=== PATIENT | male | born 1955 | race Caucasian/White ===

== ENCOUNTER 2016-06-12 04:00 | Inpatient (IN) | payer MEDICARE, BC ==
--- NOTE | ~2016-06-12 | DS ---
Discharge Summary [facility] [address] [place]. [address] NAME: ALEXIS LAMBERT : 51 STATUS : DIS IN PAT#: [id number] AGE: 60 ADM/REG DATE : 06/12/16 MR#: [id number] REPORT SERV DATE: 06/24/16 DICTATED BY: LLOYD DORANTES DATE: 06/23/16 REPORT STATUS : Draft TRANSCRIBED BY: MODConrad DATE: 06/23/16 ADMISSION DATE: 06/12/2016 DISCHARGE DATE: 06/23/2016 INDICATION FOR HOSPITALIZATION: Chest pain. DISCHARGE DIAGNOSES: 1. Non-ST elevation myocardial infarction. 2. Ischemic cardiomyopathy, ejection fraction 20-25%. 3. Coronary artery disease, remote, CABG, 5-vessels in 2007 with subsequent PCI x2. 4. End-stage renal disease, dialyzing Monday, Monday, Monday via right upper extremity AV fistula in [facility]. 5. Sleep apnea with CPAP use. 6. Hypertension. 7. Insulin-dependent diabetes mellitus, on insulin pump. 8. Gastroesophageal reflux disease with Dunbar's esophagus. 9. Gout. 10.History of lower extremity cellulitis/chronic venous stasis disease of right lower extremity. 11.Remote left below-knee amputation. 12.Peripheral artery disease with prior stent placement in lower extremity. 13.Charcot foot. 14.Iron deficiency anemia. 15.Hyperparathyroidism. 16.Right quadriceps muscle biopsy, remotely. HOSPITAL COURSE: Mr. Lambert is followed on chronic dialysis Monday, Monday, Monday at [facility] by right upper extremity AV fistula. He apparently began having alarms on LifeVest evening prior to admission with associated chest pain. He had some shortness of breath but denied any diaphoresis or nausea. He initially contacted the [facility] who instructed him to follow up with his physician. There was no evidence of ventricular tachycardia on their recordings. He then presented to the emergency department by EMS. He was found to be in bigeminy with mild elevation in troponin at 0.23. He subsequently was seen by Cardiology. The patient felt to have had a non-ST elevation ME based on troponin elevation, which yohana to 1.03. He agreed to undergoing cardiac cath, and this was performed on 06/16/2016. Dr. Skinner performed SKEIN WINDER with drug-eluting stent to saphenous vein graft of the distal circumflex. After intervention, the pain abated and he remained pain free for the remainder of his hospitalization. He was kept hospitalized primarily to determine placement. Initially, he was not felt stable for [facility] and was then evaluated for the [facility] in [facility]. Apparently, they did not take patients on LifeVest. He improved with physical therapy in his room and rehab evaluation by [facility] on 06/22/2016 felt that he was much improved, and he was stable for further improvement with rehab. He will be discharged to [facility] rehab for additional strengthening to improve his debilitation. DISCHARGE MEDICATIONS: Allopurinol 300 mg daily; aspirin 325 mg with supper; Lipitor 20 mg Discharge Summary [address] [place]. [address] NAME: ALEXIS LAMBERT : 51 STATUS : DIS IN PAT#: [id number] AGE: 60 ADM/REG DATE : 06/12/16 MR#: [id number] REPORT SERV DATE: 06/24/16 DICTATED BY: LLOYD DORANTES DATE: 06/23/16 REPORT STATUS : Draft TRANSCRIBED BY: ETHEL DATE: 06/23/16 with supper; calcium acetate 667 mg three p.o. with meals and two p.o. with snacks; Plavix 75 mg daily; Colace 200 mg with supper; vitamin D three 50,000 units weekly; Duragesic patch 25 mcg/hour, apply q.72 h; Lasix 40 mg with supper; Neurontin 300 mg three times daily; isosorbide extended release 30 mg with supper; lisinopril 2.5 mg daily; Nephrocaps 1 daily; Mycostatin topical powder to affected areas three times daily; [place]-3 fatty acid 1200 mg capsule two with supper; Protonix 40 mg with breakfast and supper; cinacalcet is being held; Proventil 1-2 puffs q.4h p.r.n.; oxycodone 5/325, 1 q.6h p.r.n.; and insulin sliding scale level 1 until insulin pump is replaced; blood sugar 140-175, two units; 176-200, four units; 201-225, six units; 226-275, eight units; 276-325, 10 units; 326-375, 12 units. DIET: 2000-calorie ADA renal diet with 1500 mL fluid restrictions daily. ACTIVITY: Will be progressed by [employer]. CG/MODL Lloyd Dorantes M.D. / [id number] CC: Ama Lanza NP
--- NOTE | ~2016-06-12 | OP ---
Record Of Operation [facility] [address] [place]. [address] NAME: ALEXIS LAMBERT : 51 STATUS : ADM IN PAT#: [id number] AGE: 60 ADM/REG DATE : 06/12/16 MR#: [id number] REPORT SERV DATE: 06/16/16 DICTATED BY: ALIRIO QUARLES JR. DATE: 06/16/16 REPORT STATUS : Draft TRANSCRIBED BY: MODL DATE: 06/16/16 DATE OF PROCEDURE: 06/15/2016 REFERRING PHYSICIAN: Dr. Corby Barnett. PROCEDURES: This is a cardiac catheterization, saphenous vein graft injection, left internal mammary artery injection, ventriculogram, left heart catheterization, coronary angiogram followed by a percutaneous coronary interventional report with stent implantation. INDICATION: Non-ST elevation myocardial infarction, unstable angina, arrhythmias. ACCESS: Right femoral artery EQUIPMENT: 6-Chilean diagnostic sheath, 6-Chilean Jocelyn left and right catheters 4.0, angled pigtail catheter 4.0, 6-Chilean sheath. IV CONSCIOUS SEDATION: 1 mg IV Versed and 50 mcg of intravenous fentanyl. LOCAL ANESTHESIA: 1% Xylocaine subcutaneous to the right femoral region. COMPLICATIONS: None. ESTIMATED BLOOD LOSS: Approximately 5 mL. DISPOSITION: Cardiac short-stay. FLUORO TIME: 7.5 minute with 1115 mGy and 150 mL of contrast for both the interventional and the diagnostic study. PROCEDURE IN DETAIL: After informed consent was obtained, the patient was taken to the cardiac catheterization lab where he was given IV conscious sedation and local anesthesia. Then a 6-Chilean sheath was placed in the right femoral artery according to protocol, secured and flushed using modified Seldinger technique. Following placement of the 6-Chilean sheath, a Jocelyn left catheter 4.0 was advanced to the level of the left main via the aorta under fluoroscopy over wire. Cineangiography was performed in the BURUNDIAN caudal, REDDING caudal and AP caudal views. This catheter was then exchanged for a Jocelyn right catheter, which was advanced over wire under fluoroscopy in the BURUNDIAN view for which cineangiography was performed in the BURUNDIAN view and AP cranial views. Next, this catheter was then advanced cautiously to the saphenous vein graft to the distal RCA and found to be occluded. The catheter was then advanced to the remaining three saphenous vein grafts in the BURUNDIAN view. Saphenous vein graft injections were performed in the BURUNDIAN and AP cranial or REDDING caudal views. The catheter was then advanced cautiously over wire to the left internal mammary artery via the left subclavian, and cineangiography of the JACKSON was performed and ensuing LAD in the AP and REDDING cranial views. Next, the catheter was exchanged for an angled pigtail catheter, which was carefully prolapsed across the aortic valve into the left ventricle. Hemodynamic tracings were obtained in the left ventricle as well as the aorta as well as across the aortic valve [facility] Of [place] [address] [place] [address] NAME: ALEXIS LAMBERT : 51 STATUS : ADM IN PAT#: [id number] AGE: 60 ADM/REG DATE : 06/12/16 MR#: [id number] REPORT SERV DATE: 06/16/16 DICTATED BY: ALIRIO QUARLES JR. DATE: 06/16/16 REPORT STATUS : Draft TRANSCRIBED BY: MODL DATE: 06/16/16 for which aortic stenosis was not identified. The case then proceeded to intervention. HEMODYNAMICS: Left ventricular end-diastolic pressure 39 mmHg, left ventricular peak systolic pressure 103 mmHg, aortic minimum diastolic pressure of 46 mmHg, aortic peak systolic pressure of 90 mmHg, mean aortic pressure 62 mmHg. There is no gradient upon withdrawal of the catheter from left ventricle to the aorta. ANGIOGRAPHY: Left main coronary artery, normal vessel bifurcating into the left anterior descending coronary artery and a circumflex coronary artery. The left anterior descending coronary artery is moderately diseased after the first diagonal coronary artery. The left anterior descending becomes a 100% occluded and is seen filling via the left internal mammary artery. The proximal diagonal corner artery appears to be significantly to severely diseased. There is a smaller diagonal seen superior to the origin of this diagonal vessel and appears much smaller. Circumflex coronary artery, moderately diseased vessel which becomes severely diseased after the AV circumflex branch then becomes 100% stenosis. First obtuse marginal branch is not identified. There may be faint filling of the distal obtuse marginal branch noted, filling from distal homo and hetero-collaterals from the distal circumflex and left anterior descending artery as well as the distal right. Right coronary artery, a moderate size codominant vessel, 100% stenosis after the AV marginal branch. Faint filling is seen distally with faint filling by bridging collaterals. Saphenous vein graft to the distal right coronary artery, 100% stenosis. Saphenous vein graft to the first obtuse marginal, 100% stenosed. Saphenous vein graft to the first diagonal patent with BRIANNA grade 3 noted distally. Saphenous vein graft to the distal circumflex patent with 75% in-stent stenosis of the body of the graft with BRIANNA 2 flow distally. Left internal mammary artery injection, left internal mammary artery is moderate- sized vessel, which supplies the mid to distal left anterior descending coronary artery. The mid distal left anterior descending coronary artery appears severely diseased and is only approximately 1 to 1.5 mm in diameter with skip lesions noted distally and BRIANNA grade 2 to 3 flow noted distally near the apex. VENTRICULOGRAM: Severe reduction of left ventricular systolic function with left ventricular dilatation with severe anterior apical hypokinesis, severe anterior hypokinesis with 1+ mitral insufficiency. IMPRESSION: 1. Multivessel [place] epicardial coronary artery disease as above with complete occlusion of the saphenous vein graft to the right coronary artery. Saphenous vein graft to presumed OM-1 with compromised saphenous vein graft to the distal circumflex. The JACKSON to the LAD appears to be a patent with diffuse disease noted in the distal left anterior descending coronary artery. 2. Severe LV systolic dysfunction with elevated left ventricular end-diastolic pressure. PLAN AND RECOMMENDATIONS: 1. PCI of the saphenous vein graft to the circumflex. Record Of Operation [address] [address] NAME: ALEXIS LAMBERT : 51 STATUS : ADM IN [facility]#: [id number] AGE: 60 ADM/REG DATE : 06/12/16 MR#: [id number] REPORT SERV DATE: 06/16/16 DICTATED BY: ALIRIO QUARLES JR. DATE: 06/16/16 REPORT STATUS : Draft TRANSCRIBED BY: ETHEL DATE: 06/16/16 2. Rigorous medical management with cardiac risk factor reduction. /ETHEL Alirio Quarles Jr., M.D. / [id number] CC: Ama Lanza NP
--- NOTE | ~2016-06-12 | CN ---
Consultation Report [facility] [address] [place]. [address] NAME: ALEXIS LAMBERT : 51 STATUS : ADM IN PAT#: [id number] AGE: 60 ADM/REG DATE : 06/12/16 MR#: [id number] REPORT SERV DATE: 06/14/16 DICTATED BY: ALIRIO QUARLES JR. DATE: 06/14/16 REPORT STATUS : Draft TRANSCRIBED BY: ETHEL DATE: 06/14/16 DATE OF CONSULTATION: REFERRING PHYSICIANS: 1. Ashok Barnett M.D. 2. Abdoulaye Dodge M.D. CHIEF COMPLAINT: Chest pain. HISTORY OF PRESENT ILLNESS: The patient is a 60-year-old white male with history of known severe ischemic heart disease with ischemic cardiomyopathy, ejection fraction less than 35%, who presented via EMS with multiple arrhythmias noted on LifeVest telemetry. Troponin was elevated at 2. He had developed "tingling" in both arms, then severe chest pressure in both lower angles of his chest, which lasted approximately an hour and a half prior to his arrival. He was pain-free on arrival. He recently had a cardiac catheterization performed on February 24, 2016, for which he had two overlapping Synergy drug-eluting stents placed 4.0 x 38 and 4.0 x 28. He is known to have a vein graft to the fourth marginal that fills the OM3 retrogradely. He has a saphenous vein graft to the diagonal and a saphenous vein graft to an OM1, which is known to be occluded, JOSE CRUZ to the LAD, and a known LV gram from February depicting an ejection fraction of 20-25% with severe inferior hypokinesis, as well as apical hypokinesis to akinesis. Currently, he is asymptomatic. REVIEW OF SYSTEMS: A 10-point review of systems, otherwise, unremarkable. ALLERGIES: TO CILOSTAZOL AND PRAVASTATIN. MEDICATIONS: Have included albuterol, aspirin, atorvastatin, calcium acetate, Sensipar, clopidogrel, Colace, vitamin D, fentanyl patch, furosemide, gabapentin, Imdur 30, omega-3 fatty acid, oxycodone, pantoprazole, and Dialyvite. PAST MEDICAL HISTORY: Notable for history of ischemic cardiomyopathy, coronary artery disease, history of acute on chronic systolic and diastolic heart failure, morbid obesity, obstructive sleep apnea, peripheral artery disease, past history of a neuropathy, cataracts, sensorineural hearing loss, peripheral artery disease, Dunbar esophagus, esophageal cancer, diabetes mellitus, past history of depression, and chronic anemia. PAST SURGICAL HISTORY: Notable for history of five-vessel CAD, bilateral cataracts, PCI, right upper radiocephalic AV fistula, history of CAD, history of right foot two toes amputated, and history of left BKA. SOCIAL HISTORY: Notable for absence of current tobacco or ethanol use. FAMILY HISTORY: Notable for heart disease. Consultation Report [address] [place]. [address] NAME: ALEXIS LAMBERT : 51 STATUS : ADM IN PAT#: [id number] AGE: 60 ADM/REG DATE : 06/12/16 MR#: [id number] REPORT SERV DATE: 06/14/16 DICTATED BY: ALIRIO QUARLES JR. DATE: 06/14/16 REPORT STATUS : Draft TRANSCRIBED BY: ETHEL DATE: 06/14/16 PHYSICAL EXAMINATION: VITAL SIGNS: Blood pressure 130/70, pulse 72 and regular, respirations 14, patient is afebrile. HEENT: Unremarkable. NECK: Supple without jugular venous distention. CARDIOVASCULAR SYSTEM: Regular rate and rhythm. S4, questionable S3. LUNGS: Clear. ABDOMEN: Benign without hepatomegaly. EXTREMITIES: 1+ with no pedal edema on the right and the left, amputation is noted. NEUROLOGIC: The patient is grossly unchanged. LABORATORY DATA AND IMAGING: EKG on arrival was sinus rhythm with multiple PACs, PVCs, ventricular bigeminy, delayed R-wave progression, nonspecific ST changes, left axis deviation, prior inferior myocardial infarction, age undetermined. Sodium 131, potassium 5.5, chloride 95, CO2 24, BUN 55, creatinine 6.8, glucose 312. H and H 12 and 36, white count of 8, and platelet count of 146,000. BNP of 1695, troponin of 0.23, calcium 8.3, PT of 150, PT/INR of 1.2. IMPRESSION: 1. A 60-year-old, morbidly obese, white male with multiple comorbidities and known hypertension and coronary artery disease with ischemic cardiomyopathy with recent LifeVest approximately three months ago. 2. Diabetes mellitus, uncontrolled. 3. End-stage renal disease, on hemodialysis with known arteriovenous fistula. 4. Dyslipidemia. 5. Non-ST elevation myocardial infarction on arrival. PLANS AND RECOMMENDATIONS: 1. Cardiac catheterization for relook at the graft and recent PCI. The patient is aware of risk of 1% chance of , 1 in 500 chance of stroke, chance of bleeding or infection anytime we enter the skin or damage to the heart, lungs, blood vessels, or kidneys. 2. Cardiac risk factor reduction. 3. We will review medications and begin beta-viki, maximize current medical regimen. 4. Further recommendations to follow. ANY/ETHEL Alirio Quarles Jr., M.D. / [id number] Consultation Report [address] [place]. [address] NAME: ALEXIS LAMBERT : 51 STATUS : ADM IN [facility]#: [id number] AGE: 60 ADM/REG DATE : 06/12/16 MR#: [id number] REPORT SERV DATE: 06/14/16 DICTATED BY: ALIRIO QUARLES JR. DATE: 06/14/16 REPORT STATUS : Draft TRANSCRIBED BY: ETHEL DATE: 06/14/16 CC: Ama Lanza NP Stuart G Ginther, M.D. Theodore Richards, M.D. Michael C Allan, M.D. [facility]
--- NOTE | ~2016-06-12 | HP ---
History And Physical [place] [address] [place]. [address] NAME: ALEXIS LAMBERT : 51 STATUS : ADM IN [facility]#: [id number] AGE: 60 ADM/REG DATE : 06/12/16 MR#: [id number] REPORT SERV DATE: 06/12/16 DICTATED BY: DATE: REPORT STATUS : Draft TRANSCRIBED BY: MODL DATE: 06/12/16 DATE OF ADMISSION: 06/12/2016 CHIEF COMPLAINT: Chest pain. HISTORY OF PRESENT ILLNESS: Mr. Lambert is a 60-year-old white male with a history of significant coronary artery disease, DC, and ischemic cardiomyopathy with EF down to 20% to 25%. He was last seen in the hospital in February, at that time, he was sent home with a LifeVest. Apparently last night, it started alarming. He also had chest pain. No nausea or diaphoresis. With the chest pain, he did have some shortness of breath. His chest pain was midsternal without radiation. Given this, initially they called the LifeVest company who instructed them to follow up with their physician as his vest just showed a rhythm change. There was no ventricular tachycardia. Given that the symptoms were ongoing, he presented to the emergency department via EMS. His states that he was in his usual state of health yesterday and there were no problems at dialysis on Monday. He has had no fevers, chills, cough, or congestion. In the ER, he was found to be in bigeminy. Troponin with mild elevation at 0.23. Labs were remarkable for findings consistent with his end- stage renal disease. PAST MEDICAL HISTORY: End-stage renal disease, dialyzes on Monday, Monday, and Monday in [place]; coronary artery disease, status post bypass and PCI; diabetes; hypertension; obstructive sleep apnea, uses CPAP; hyperlipidemia; peripheral artery disease; left BKA; DC; Dunbar esophagus. He has had tendon rupture repair. SOCIAL HISTORY: He is , lives with . No tobacco, alcohol, or illicit drug use. FAMILY MEDICAL HISTORY: Negative for any end-stage renal disease. ALLERGIES: CILOSTAZOL AND PRAVASTATIN. MEDICATIONS AT HOME: Albuterol, allopurinol, aspirin, atorvastatin, calcium acetate, Sensipar, Plavix, docusate, vitamin D, Duragesic patch, furosemide, Neurontin, Imdur, omega- 3 fatty acid, oxycodone, Protonix, and Dialyvite daily. REVIEW OF SYSTEMS: A 12-point review of systems was obtained, negative with the exception of that in HPI. PHYSICAL EXAMINATION: VITAL SIGNS: Temperature 97.9, blood pressure 118/71, pulse 66, respiratory rate 16, and O2 saturation is 93%. GENERAL: This is a pleasant, cooperative, white male. He is awake, alert, and oriented x3. No acute distress. Answers questions appropriately. HEENT: Normocephalic, atraumatic. Conjunctivae clear. Sclerae anicteric. Oral mucosa is slightly dry. NECK: Thick. No lymphadenopathy. No neck vein distention. RESPIRATIONS: Even and unlabored. Breath sounds clear to auscultation. History And Physical [address] [address] NAME: ALEXIS LAMBERT : 51 STATUS : ADM IN [facility]#: [id number] AGE: 60 ADM/REG DATE : 06/12/16 MR#: [id number] REPORT SERV DATE: 06/12/16 DICTATED BY: DATE: REPORT STATUS : Draft TRANSCRIBED BY: MODL DATE: 06/12/16 HEART: Rate is regular. No murmur, rub, or gallop. ABDOMEN: Obese, soft, nontender. Bowel sounds active. No masses. No hepatosplenomegaly. No bruits. No CVA tenderness. BACK: Within normal limits. EXTREMITIES: He has a left BKA and stump is without any edema. Right lower extremity without any edema. SKIN: Warm, dry, and intact. No unusual rashes or skin lesions. NEUROLOGIC: No focal deficits. Mood and affect, pleasant and appropriate. PERTINENT LABORATORIES AND X-RAYS: Chest x-ray is negative. Sodium 131, potassium 5.5, chloride 95, CO2 of 24, BUN 55, creatinine 6.8, calcium 8.3, magnesium 1.7. Troponin 0.23. BNP of 1695. WBCs 8000, H and H are 12 and 36, and platelets 146,000. IMPRESSION: 1. Chest pain. 2. Arrhythmia with warming LifeVest. 3. Ischemic cardiomyopathy with EF of 20% to 25%. There were plans for an ICD to placed this , may move that date to Monday unless he needs a heart catheterization. 4. Coronary artery disease, multiple medications in the past, status post bypass and stenting. 5. End-stage renal disease, Monday, Monday, and Monday. 6. Hypertension. 7. Obstructive sleep apnea. 8. Hyperlipidemia. PLAN/RECOMMENDATION: He is going to be admitted. He is going to be placed on telemetry with serial cardiac enzymes. Cardiology has already been consulted and considering moving up his ICD placement to Monday, we will have dialysis tomorrow per his usual regimen, may try to pull some extra fluid. Further orders and recommendations pending clinical course. DARIA/ETHEL CJ Moreno / [id number] CC: Abdoulaye Dodge M.D.
--- NOTE | ~2016-06-12 | OP ---
Record Of Operation [facility] [address] [place]. [address] NAME: ALEXIS LAMBERT : 51 STATUS : ADM IN PAT#: [id number] AGE: 60 ADM/REG DATE : 06/12/16 MR#: [id number] REPORT SERV DATE: 06/16/16 DICTATED BY: ALIRIO QUARLES JR. DATE: 06/16/16 REPORT STATUS : Draft TRANSCRIBED BY: MODL DATE: 06/16/16 DATE OF PROCEDURE: 06/15/2016 INTERVENTIONAL REPORT EQUIPMENT: Asahi Prowater 180 cm J, [employer] synergy 4.0 x 20 mm stent, and a [employer] JR4 with side holes guiding catheter. ANGIOGRAPHY: There is a 75% stenosis of the body of the saphenous vein graft to the distal circumflex. This is an in-stent stenosis between two other larger stent placed previously with in-stent stenosis of the distal stent with BRIANNA grade 2 flow noted distally. ANTICOAGULATION: Intravenous heparin with ACT of 260. PROCEDURE: After a Jocelyn guiding catheter, successfully accessed the ostium of the saphenous vein graft and Asahi Prowater then traversed the lesion to the distal circumflex mechoopda vessel extending to 4 x 28 mm stent was then advanced across the lesion and dilated to 12 atmospheres for approximately 30 seconds, post dilated at 12 atmospheres for 20 seconds with 0% residual stenosis. The patient tolerated the procedure well. Hemostasis was achieved according to protocol after ACT fell below 150 seconds. IMPRESSIONS: Successful PTCA drug-eluting stent to the mid body of the saphenous vein graft to the distal circumflex. PLANS AND RECOMMENDATIONS: Plavix load of 600 mg and 75 mg daily with high-dose Lipitor administered according to recommendations. /ETHEL Alirio Quarles Jr., M.D. / [id number] CC: Ama Lanza NP
--- NOTE | ~2016-06-12 | CN ---
Consultation Report [facility] [address] [place]. [address] NAME: ALEXIS LAMBERT : 51 STATUS : ADM IN [facility]#: [id number] AGE: 60 ADM/REG DATE : 06/12/16 MR#: [id number] REPORT SERV DATE: 06/13/16 DICTATED BY: ASHOK BARNETT DATE: 06/12/16 REPORT STATUS : Draft TRANSCRIBED BY: MODL DATE: 06/12/16 CONSULTATION DATE OF CONSULTATION: REASON FOR THE VISIT: Chest pain. HISTORY OF PRESENT ILLNESS: Mr. Lambert is a 60-year-old man with known severe coronary artery disease, who is due for AICD implant this coming . He also has congestive heart failure and he is wearing a LifeVest. He was in his usual state of health when he began to have some chest pain, palpitations, and shortness of breath yesterday. This was associated with some left arm pain. His LifeVest to arm was going off constantly indicating an upcoming shock. He pressed the abort button and was never shocked. He feels better now. PAST MEDICAL HISTORY: 1. Coronary artery disease with history of CABG and myocardial infarction. 2. Congestive heart failure with severe reduction in left ventricular systolic function. 3. End-stage renal disease, dialyzing on Monday, Monday, and Monday. 4. Morbid obesity. 5. Sleep apnea. 6. History of peripheral arterial disease. SOCIAL HISTORY: Nonsmoker. He is . FAMILY HISTORY: Noncontributory. HOME MEDICATIONS: 1. Albuterol inhaler as directed. 2. Zyloprim 300 mg every night with dinner. 3. Aspirin 325 mg daily. 4. Lipitor 20 mg every night with dinner. 5. Calcium. 6. Sensipar 30 mg on dialysis days. 7. Plavix 75 mg daily. 8. Fentanyl patch. 9. Lasix 40 mg daily. 10.Gabapentin 300 mg t.i.d. 11.Imdur 30 mg daily. 12.Protonix 40 mg b.i.d. ALLERGIES: HE IS ALLERGIC TO SULFATHIAZOLE AND PRAVASTATIN. REVIEW OF SYSTEMS: A 10-system review is asked and is negative except for noted above in the history of present Consultation Report [place] [id number] [facility] [address] NAME: ALEXIS LAMBERT : 51 STATUS : ADM IN [facility]#: [id number] AGE: 60 ADM/REG DATE : 06/12/16 MR#: [id number] REPORT SERV DATE: 06/13/16 DICTATED BY: ASHOK BARNETT DATE: 06/12/16 REPORT STATUS : Draft TRANSCRIBED BY: ETHEL DATE: 06/12/16 illness. He was in his usual state of health up until this occurred suddenly yesterday. No recent cold or flu symptoms. He is always tired, always some baseline amount shortness of breath. PHYSICAL EXAMINATION: VITAL SIGNS: He is afebrile, heart rate is in the 80s, systolic blood pressure 113. GENERAL: Mr. Lambert is an overweight man, in no acute distress. He is alert and oriented to person and place. HEENT: Negative. He is not dehydrated. There is no obvious JVD in his neck, but that is difficult to tell due to body habitus. LUNGS: Have some rhonchi. No wheezing. HEART: Tones are a little bit irregular. There is some ectopy. No murmur. ABDOMEN: Negative. He has good bowel sounds. EXTREMITIES: Negative except for an amputation of his left lower extremity. There is some edema in the other extremities. NEUROLOGIC: He has normal speech. He moves all four extremities equally. SKIN: Does not show any rash. LABORATORY DATA: His white blood cell count is 8, hematocrit is 37, platelet count 146. INR 1.2. Sodium 131, potassium 5.5, BUN 55, creatinine 6.8, cardiac enzyme show a troponin of 0.23. His B-type natriuretic peptide is 1695. His electrocardiogram, this is from about 03:00 a.m. this morning, it shows sinus rhythm with frequent ventricular ectopy, typically in a bigeminal pattern. The QRS axis is normal it appears. He has poor R-wave progression. No obvious ischemia is seen. His LifeVest recording, this appears to show bigeminal PVCs as well as some couplets. No sustained ventricular tachycardia or ventricular fibrillation is seen. IMPRESSION: 1. Chest pain, shortness of breath, and palpitations. 2. Bigeminal PVCs. 3. Troponin 0.23. PLAN: At this point, I will observe Mr. Lambert without starting a blood thinner. The troponin could be secondary to an acute coronary syndrome or possibly heart failure exacerbation, plus or minus the frequent ventricular ectopy. I will start a beta-viki at low dose. We will watch the cardiac enzymes. If these increase to a significant level, then we would have to consider an acute coronary syndrome. I will start heparin and consult an interventionalist at that time. We will watch these throughout the day today. If this troponin does not continue to increase, we will consider it to a heart failure exacerbation and/or the ventricular bigeminy. We would then proceed with defibrillator placement as planned this week. I have discussed this with the patient and his . They agreed to proceed in this manner. Consultation Report [place] [id number] [facility] [place] [address] NAME: ALEXIS LAMBERT : 51 STATUS : ADM IN [facility]#: [id number] AGE: 60 ADM/REG DATE : 06/12/16 MR#: [id number] REPORT SERV DATE: 06/13/16 DICTATED BY: ASHOK BARNETT DATE: 06/12/16 REPORT STATUS : Draft TRANSCRIBED BY: ETHEL DATE: 06/12/16 Thank you for the consultation. MAINE/ETHEL Ashok Barnett M.D. / [id number] CC: Abdoulaye Dodge M.D.
[~2016-06-12 04:00] MED LIST: ACETASOL HC OT; AMLODIPINE PO; AMPHETAMINE SALT PO; ASA5GR PO; ASAB PO; ASABAYER PO; AUG500 PO; AVELOX400 PO; BETAPACE80 PO; CAT1 PO; CELEXA10 PO; COREG6 PO; D 5000 PO; DEMA100 PO; DIALYVITE PO; DIALYVITE800 MG PO; DSS PO; DURA25 TOP; DURA75 TOP; ENDOCET1 TA3 PO; FERROUS SULF325 M1 PO; FISH OIL1200 MG PO; FISH-EPA1000 MG PO; FOLIC PO; FORTAZ IV; HALF81 PO; HUMAPUMP SC; HUMULIN R U SC; HUMULIN R U-500; HUMULIN R1 ML SC; HUMULIN-R CONCEN3 ML SC; HUMULIN-R U-500; HYDRALAZINE100 MG PO; IMDUR30 PO; INHALER RX INH; IRON325 MG PO; K-TABS10 MEQ PO; KAON-CL-1010 MEQ PO; L40 PO; L80 PO; LIPITOR20 PO; LYRICA100 MG PO; LYRICA150 MG PO; LYRICA200 MG PO; METHOC500B PO; MIRALAXPKT PO; NITROSPRAY SL; NORV10 PO; NORV5 PO; NORVASC; NOVREGPUMP SC; OXYCON20 PO; OXYIR5 MG PO; PERCOCET1 TA4 PO; PHOSLO PO; PLAVIX PO; PREV30 PO; PRILO PO; PRIN20 PO; PRIN5 PO; PROAIR HFA INH; PROCRIT; PROCRIT INJECTION IM; PROCRIT10 IV; PROCRIT2 IV; PROCRIT2 SC; PROTONIX PO; REG5 PO; ROCALTROL0.5 MCG PO; STOOL SOFTEN100 MG PO; STOOL SOFTEN240 MG PO; SUCR PO; VITAMIN D1000 UNI1 PO; VITAMIN D400 UNI1 PO; VITD PO; Z300 PO; Z5 PO; [UNRECOGNIZED DRUG - CODE] IV; [UNRECOGNIZED DRUG - OTHER] IM
[2016-06-12 04:59] LABS: BASOPHILS 0.3 %; BASOPHILS ABSOLUTE 0.02 10/3/uL (0.0-0.16); EOSINOPHILS 2.3 %; EOSINOPHILS ABSOLUTE 0.18 10/3/uL (0.0-0.53); ER CBC TAT 0 Hrs 03 Mins; IMMATURE GRANULOCYTES 0.1 %; IMMATURE GRANULOCYTES ABSOLUTE 0.01 10/3/uL (0.0-0.11); LYMPHOCYTES 26.4 %; LYMPHOCYTES ABSOLUTE 2.11 10/3/uL (0.67-4.30); MEAN CORPUSCULAR HEMOGLOB 31.7 pg (26.0-34.0); MEAN PLATELET VOLUME 11.6 fL (9.2-13.0); MONOCYTES 3.6 %; MONOCYTES ABSOLUTE 0.29 10/3/uL (0.21-1.20); NEUTROPHILS 67.3 %; NEUTROPHILS ABSOLUTE 5.37 10/3/uL (2.02-8.40); PLATELET COUNT 146 10/3/uL (150-400); RBC DISTRIBUTION WIDTH 15.6 % (12.0-16.0)
[2016-06-12 05:05] LABS: HEMATOCRIT 36.8 % (40.0-51.0); MEAN CORPUS HGB CONC 32.6 g/dL (32.0-36.0); MEAN CORPUSCULAR VOLUME 97.1 fL (80-100); RED CELL COUNT 3.79 10/6/uL (4.7-6.1)
[2016-06-12 05:06] LABS: INTERNATIONAL NORMAL RATI 1.2 UNITS (-); MANUAL DIFF NO %; PARTIAL THROMBO TIME 30.4 SEC (22.5-37.2)
[2016-06-12 05:42] LABS: CHLORIDE, SERUM 95 MMOL/L (96-112); CO2 (CARBON DIOXIDE) 24 MMOL/L (24-34); POTASSIUM, SERUM 5.5 MMOL/L (3.5-5.3); SODIUM, SERUM 131 MMOL/L (135-148)
[2016-06-12 05:46] LABS: BUN (BLOOD UREA NITROGEN) 55 MG/DL (6-23); CALCIUM, SERUM 8.3 MG/DL (8.5-10.4); CHEST PAIN PROFILE TAT 0 Hrs 50 Mins; CREATININE 6.84 MG/DL (0.70-1.30); GFR AFRICAN AMERICAN 9 ML/MIN (>=60); GFR NON AFRICAN AMERICAN 8 ML/MIN (>=60); GLUCOSE, SERUM 312 MG/DL (60-99); TROPONIN I 0.23 NG/ML (<0.05)
[2016-06-12] MEDS ORDERED: PROVHFA INH (09:17)
[2016-06-12] MEDS ORDERED: SENSIPAR30 M1 PO (09:17)
[2016-06-12] MEDS ORDERED: PCET PO (09:18)
[2016-06-12] MEDS ORDERED: DURA25 TOP (09:18)
[2016-06-12] MEDS ORDERED: L40 PO (09:18)
[2016-06-12] MEDS ORDERED: NEUR300 PO (09:18)
[2016-06-12] MEDS ORDERED: VITD PO (09:19)
[2016-06-12] MEDS ORDERED: DIALYVITE PO (09:19)
[2016-06-12] MEDS ORDERED: PHOSLO PO ×2 (09:20)
[2016-06-12] MEDS ORDERED: ASABAYER PO (09:20)
[2016-06-12] MEDS ORDERED: LIPITOR20 PO (09:20)
[2016-06-12] MEDS ORDERED: PLAVIX PO (09:21)
[2016-06-12] MEDS ORDERED: IMDUR30 PO (09:21)
[2016-06-12] MEDS ORDERED: PROTONIX PO (09:21)
[2016-06-12] MEDS ORDERED: FISH OIL1200 MG PO (09:21)
[2016-06-12] MEDS ORDERED: Z300 PO (09:21)
[2016-06-12] MEDS ORDERED: DSS PO (09:22)
[2016-06-12 12:08] LABS: BASOPHILS 0.5 %; BASOPHILS ABSOLUTE 0.03 10/3/uL (0.0-0.16); EOSINOPHILS 2.9 %; EOSINOPHILS ABSOLUTE 0.19 10/3/uL (0.0-0.53); HEMATOCRIT 35.8 % (40.0-51.0); HEMOGLOBIN 11.6 g/dL (13.6-17.8); IMMATURE GRANULOCYTES 0.3 %; IMMATURE GRANULOCYTES ABSOLUTE 0.02 10/3/uL (0.0-0.11); LYMPHOCYTES 25.3 %; LYMPHOCYTES ABSOLUTE 1.68 10/3/uL (0.67-4.30); MEAN CORPUS HGB CONC 32.4 g/dL (32.0-36.0); MEAN CORPUSCULAR HEMOGLOB 31.7 pg (26.0-34.0); MEAN CORPUSCULAR VOLUME 97.8 fL (80-100); MONOCYTES ABSOLUTE 0.33 10/3/uL (0.21-1.20); NEUTROPHILS ABSOLUTE 4.39 10/3/uL (2.02-8.40); PLATELET COUNT 135 10/3/uL (150-400); RBC DISTRIBUTION WIDTH 15.7 % (12.0-16.0); RED CELL COUNT 3.66 10/6/uL (4.7-6.1); WHITE BLOOD CELLS 6.6 10/3/uL (4.5-10.5)
[2016-06-12 12:09] LABS: MANUAL DIFF NO %
[2016-06-12 12:13] LABS: INTERNATIONAL NORMAL RATI 1.2 UNITS (-); PARTIAL THROMBO TIME 31.4 SEC (22.5-37.2); PROTIME (NOT ORD) 15.4 SEC (12.0-14.5)
[2016-06-13 01:57] LABS: BASOPHILS 0.1 %; BASOPHILS ABSOLUTE 0.01 10/3/uL (0.0-0.16); EOSINOPHILS 3.3 %; EOSINOPHILS ABSOLUTE 0.23 10/3/uL (0.0-0.53); HEMATOCRIT 36.6 % (40.0-51.0); HEMOGLOBIN 11.9 g/dL (13.6-17.8); IMMATURE GRANULOCYTES 0.1 %; IMMATURE GRANULOCYTES ABSOLUTE 0.01 10/3/uL (0.0-0.11); LYMPHOCYTES ABSOLUTE 2.37 10/3/uL (0.67-4.30); MEAN CORPUS HGB CONC 32.5 g/dL (32.0-36.0); MEAN CORPUSCULAR HEMOGLOB 31.4 pg (26.0-34.0); MEAN CORPUSCULAR VOLUME 96.6 fL (80-100); MEAN PLATELET VOLUME 12.1 fL (9.2-13.0); MONOCYTES 4.4 %; MONOCYTES ABSOLUTE 0.31 10/3/uL (0.21-1.20); NEUTROPHILS 58.1 %; NEUTROPHILS ABSOLUTE 4.05 10/3/uL (2.02-8.40); PLATELET COUNT 138 10/3/uL (150-400); RBC DISTRIBUTION WIDTH 15.5 % (12.0-16.0); RED CELL COUNT 3.79 10/6/uL (4.7-6.1)
[2016-06-13 02:01] LABS: MANUAL DIFF NO %
[2016-06-13 02:13] LABS: ALBUMIN 3.1 G/DL (3.5-5.0); CALCIUM, SERUM 8.8 MG/DL (8.5-10.4); CHLORIDE, SERUM 93 MMOL/L (96-112); CO2 (CARBON DIOXIDE) 22 MMOL/L (24-34); SODIUM, SERUM 132 MMOL/L (135-148)
[2016-06-13 02:21] LABS: BUN (BLOOD UREA NITROGEN) 63 MG/DL (6-23); CREATININE 7.42 MG/DL (0.70-1.30); GFR AFRICAN AMERICAN 8 ML/MIN (>=60); GFR NON AFRICAN AMERICAN 7 ML/MIN (>=60); GLUCOSE, SERUM 87 MG/DL (60-99); PHOSPHORUS, SERUM 6.7 MG/DL (2.5-4.5)
[2016-06-14 06:33] LABS: BASOPHILS 0.2 %; BASOPHILS ABSOLUTE 0.02 10/3/uL (0.0-0.16); EOSINOPHILS 2.9 %; EOSINOPHILS ABSOLUTE 0.24 10/3/uL (0.0-0.53); IMMATURE GRANULOCYTES 0.2 %; IMMATURE GRANULOCYTES ABSOLUTE 0.02 10/3/uL (0.0-0.11); LYMPHOCYTES 28.6 %; LYMPHOCYTES ABSOLUTE 2.35 10/3/uL (0.67-4.30); MANUAL DIFF NO %; MEAN CORPUS HGB CONC 32.4 g/dL (32.0-36.0); MEAN CORPUSCULAR HEMOGLOB 31.7 pg (26.0-34.0); MEAN CORPUSCULAR VOLUME 97.6 fL (80-100); MEAN PLATELET VOLUME 11.9 fL (9.2-13.0); MONOCYTES 6.3 %; MONOCYTES ABSOLUTE 0.52 10/3/uL (0.21-1.20); NEUTROPHILS 61.8 %; NEUTROPHILS ABSOLUTE 5.08 10/3/uL (2.02-8.40); PLATELET COUNT 162 10/3/uL (150-400); RBC DISTRIBUTION WIDTH 15.8 % (12.0-16.0); RED CELL COUNT 3.79 10/6/uL (4.7-6.1); WHITE BLOOD CELLS 8.2 10/3/uL (4.5-10.5)
[2016-06-14 06:44] LABS: PARTIAL THROMBO TIME 102.8 SEC (22.5-37.2)
[2016-06-14 07:02] LABS: CHLORIDE, SERUM 92 MMOL/L (96-112); CO2 (CARBON DIOXIDE) 23 MMOL/L (24-34); SODIUM, SERUM 129 MMOL/L (135-148)
[2016-06-14 07:06] LABS: BUN (BLOOD UREA NITROGEN) 51 MG/DL (6-23); CALCIUM, SERUM 7.5 MG/DL (8.5-10.4); CREATININE 6.66 MG/DL (0.70-1.30); GFR AFRICAN AMERICAN 9 ML/MIN (>=60); GFR NON AFRICAN AMERICAN 8 ML/MIN (>=60); GLUCOSE, SERUM 137 MG/DL (60-99); PHOSPHORUS, SERUM 5.6 MG/DL (2.5-4.5)
[2016-06-15 05:04] LABS: INTERNATIONAL NORMAL RATI 1.2 UNITS (-); PROTIME (NOT ORD) 15.3 SEC (12.0-14.5)
[2016-06-15 05:08] LABS: BASOPHILS 0.3 %; BASOPHILS ABSOLUTE 0.02 10/3/uL (0.0-0.16); EOSINOPHILS 2.9 %; EOSINOPHILS ABSOLUTE 0.23 10/3/uL (0.0-0.53); HEMATOCRIT 33.9 % (40.0-51.0); HEMOGLOBIN 10.9 g/dL (13.6-17.8); IMMATURE GRANULOCYTES 0.3 %; IMMATURE GRANULOCYTES ABSOLUTE 0.02 10/3/uL (0.0-0.11); LYMPHOCYTES 30.3 %; LYMPHOCYTES ABSOLUTE 2.37 10/3/uL (0.67-4.30); MEAN CORPUS HGB CONC 32.2 g/dL (32.0-36.0); MEAN CORPUSCULAR HEMOGLOB 31.2 pg (26.0-34.0); MEAN CORPUSCULAR VOLUME 97.1 fL (80-100); MEAN PLATELET VOLUME 11.9 fL (9.2-13.0); MONOCYTES 6.5 %; MONOCYTES ABSOLUTE 0.51 10/3/uL (0.21-1.20); NEUTROPHILS 59.7 %; NEUTROPHILS ABSOLUTE 4.66 10/3/uL (2.02-8.40); PLATELET COUNT 141 10/3/uL (150-400); RED CELL COUNT 3.49 10/6/uL (4.7-6.1); WHITE BLOOD CELLS 7.8 10/3/uL (4.5-10.5)
[2016-06-15 05:09] LABS: MANUAL DIFF NO %
[2016-06-15 05:17] LABS: ALBUMIN 2.8 G/DL (3.5-5.0); CHLORIDE, SERUM 87 MMOL/L (96-112); CO2 (CARBON DIOXIDE) 23 MMOL/L (24-34); SODIUM, SERUM 126 MMOL/L (135-148)
[2016-06-15 05:19] LABS: BUN (BLOOD UREA NITROGEN) 60 MG/DL (6-23); CALCIUM, SERUM 6.9 MG/DL (8.5-10.4); CHOL/HDL RATIO(NOT ORDER) 2.9 (0-5); CHOLESTEROL 112 MG/DL (< 200); CREATININE 7.65 MG/DL (0.70-1.30); GFR AFRICAN AMERICAN 8 ML/MIN (>=60); GFR NON AFRICAN AMERICAN 7 ML/MIN (>=60); GLUCOSE, SERUM 181 MG/DL (60-99); HDL CHOLESTEROL 39 MG/DL (> 39); LDL CHOLESTEROL 50 MG/DL (< 130); NON-HDL CHOLESTEROL 73 MG/DL (< 160); PHOSPHORUS, SERUM 6.8 MG/DL (2.5-4.5); TRIGLYCERIDE 116 MG/DL (< 150)
[2016-06-15 05:25] LABS: PARTIAL THROMBO TIME > 150.0 SEC (22.5-37.2)
[2016-06-16 04:48] LABS: BASOPHILS 0.2 %; BASOPHILS ABSOLUTE 0.01 10/3/uL (0.0-0.16); EOSINOPHILS 1.9 %; EOSINOPHILS ABSOLUTE 0.12 10/3/uL (0.0-0.53); HEMATOCRIT 34.6 % (40.0-51.0); HEMOGLOBIN 10.9 g/dL (13.6-17.8); IMMATURE GRANULOCYTES 0.2 %; IMMATURE GRANULOCYTES ABSOLUTE 0.01 10/3/uL (0.0-0.11); LYMPHOCYTES 11.9 %; LYMPHOCYTES ABSOLUTE 0.74 10/3/uL (0.67-4.30); MEAN CORPUS HGB CONC 31.5 g/dL (32.0-36.0); MEAN CORPUSCULAR HEMOGLOB 30.4 pg (26.0-34.0); MEAN CORPUSCULAR VOLUME 96.6 fL (80-100); MEAN PLATELET VOLUME 12.6 fL (9.2-13.0); MONOCYTES 4.5 %; MONOCYTES ABSOLUTE 0.28 10/3/uL (0.21-1.20); NEUTROPHILS 81.3 %; NEUTROPHILS ABSOLUTE 5.04 10/3/uL (2.02-8.40); PLATELET COUNT 179 10/3/uL (150-400); RBC DISTRIBUTION WIDTH 16.4 % (12.0-16.0); RED CELL COUNT 3.58 10/6/uL (4.7-6.1); WHITE BLOOD CELLS 6.2 10/3/uL (4.5-10.5)
[2016-06-16 04:58] LABS: MANUAL DIFF NO %
[2016-06-16 08:04] LABS: ALBUMIN 3.2 G/DL (3.5-5.0); CALCIUM, SERUM 7.6 MG/DL (8.5-10.4); CHLORIDE, SERUM 91 MMOL/L (96-112); CO2 (CARBON DIOXIDE) 26 MMOL/L (24-34); GLUCOSE, SERUM 200 MG/DL (60-99); POTASSIUM, SERUM 5.4 MMOL/L (3.5-5.3); SODIUM, SERUM 131 MMOL/L (135-148)
[2016-06-16 08:05] LABS: BUN (BLOOD UREA NITROGEN) 42 MG/DL (6-23); CREATININE 6.43 MG/DL (0.70-1.30); GFR AFRICAN AMERICAN 10 ML/MIN (>=60); GFR NON AFRICAN AMERICAN 8 ML/MIN (>=60); PHOSPHORUS, SERUM 5.8 MG/DL (2.5-4.5)
[2016-06-17 08:12] LABS: BASOPHILS 0.1 %; BASOPHILS ABSOLUTE 0.01 10/3/uL (0.0-0.16); EOSINOPHILS ABSOLUTE 0.15 10/3/uL (0.0-0.53); HEMATOCRIT 35.9 % (40.0-51.0); HEMOGLOBIN 11.3 g/dL (13.6-17.8); IMMATURE GRANULOCYTES 0.3 %; IMMATURE GRANULOCYTES ABSOLUTE 0.02 10/3/uL (0.0-0.11); LYMPHOCYTES ABSOLUTE 1.89 10/3/uL (0.67-4.30); MEAN CORPUS HGB CONC 31.5 g/dL (32.0-36.0); MEAN CORPUSCULAR HEMOGLOB 31.2 pg (26.0-34.0); MEAN CORPUSCULAR VOLUME 99.2 fL (80-100); MEAN PLATELET VOLUME 11.5 fL (9.2-13.0); MONOCYTES 5.4 %; MONOCYTES ABSOLUTE 0.41 10/3/uL (0.21-1.20); NEUTROPHILS 67.2 %; NEUTROPHILS ABSOLUTE 5.08 10/3/uL (2.02-8.40); PLATELET COUNT 160 10/3/uL (150-400); RBC DISTRIBUTION WIDTH 16.2 % (12.0-16.0); RED CELL COUNT 3.62 10/6/uL (4.7-6.1); WHITE BLOOD CELLS 7.6 10/3/uL (4.5-10.5)
[2016-06-17 08:13] LABS: MANUAL DIFF NO %
[2016-06-17 08:32] LABS: ALBUMIN 2.9 G/DL (3.5-5.0); CALCIUM, SERUM 7.9 MG/DL (8.5-10.4); CHLORIDE, SERUM 89 MMOL/L (96-112); CO2 (CARBON DIOXIDE) 24 MMOL/L (24-34); GFR AFRICAN AMERICAN 8 ML/MIN (>=60); GFR NON AFRICAN AMERICAN 7 ML/MIN (>=60); GLUCOSE, SERUM 166 MG/DL (60-99); PHOSPHORUS, SERUM 6.7 MG/DL (2.5-4.5); SODIUM, SERUM 127 MMOL/L (135-148)
[2016-06-17 08:33] LABS: BUN (BLOOD UREA NITROGEN) 55 MG/DL (6-23); CREATININE 7.84 MG/DL (0.70-1.30); POTASSIUM, SERUM 6.2 MMOL/L (3.5-5.3)
[2016-06-18 07:52] LABS: BASOPHILS 0.2 %; BASOPHILS ABSOLUTE 0.01 10/3/uL (0.0-0.16); EOSINOPHILS 2.1 %; EOSINOPHILS ABSOLUTE 0.14 10/3/uL (0.0-0.53); HEMATOCRIT 34.3 % (40.0-51.0); HEMOGLOBIN 10.6 g/dL (13.6-17.8); IMMATURE GRANULOCYTES 0.2 %; IMMATURE GRANULOCYTES ABSOLUTE 0.01 10/3/uL (0.0-0.11); LYMPHOCYTES 28.1 %; LYMPHOCYTES ABSOLUTE 1.86 10/3/uL (0.67-4.30); MEAN CORPUS HGB CONC 30.9 g/dL (32.0-36.0); MEAN CORPUSCULAR HEMOGLOB 31.5 pg (26.0-34.0); MEAN CORPUSCULAR VOLUME 101.8 fL (80-100); MEAN PLATELET VOLUME 12.1 fL (9.2-13.0); MONOCYTES 6.8 %; MONOCYTES ABSOLUTE 0.45 10/3/uL (0.21-1.20); NEUTROPHILS 62.6 %; NEUTROPHILS ABSOLUTE 4.14 10/3/uL (2.02-8.40); PLATELET COUNT 162 10/3/uL (150-400); RBC DISTRIBUTION WIDTH 16.4 % (12.0-16.0); RED CELL COUNT 3.37 10/6/uL (4.7-6.1); WHITE BLOOD CELLS 6.6 10/3/uL (4.5-10.5)
[2016-06-18 07:54] LABS: MANUAL DIFF NO %
[2016-06-18 08:05] LABS: CALCIUM, SERUM 8.1 MG/DL (8.5-10.4); CHLORIDE, SERUM 96 MMOL/L (96-112); CO2 (CARBON DIOXIDE) 25 MMOL/L (24-34); GLUCOSE, SERUM 145 MG/DL (60-99); SODIUM, SERUM 131 MMOL/L (135-148)
[2016-06-18 08:06] LABS: BUN (BLOOD UREA NITROGEN) 37 MG/DL (6-23); CREATININE 6.75 MG/DL (0.70-1.30); GFR AFRICAN AMERICAN 9 ML/MIN (>=60); GFR NON AFRICAN AMERICAN 8 ML/MIN (>=60); PHOSPHORUS, SERUM 5.3 MG/DL (2.5-4.5); POTASSIUM, SERUM 4.8 MMOL/L (3.5-5.3)
[2016-06-19 05:59] LABS: BASOPHILS 0.5 %; BASOPHILS ABSOLUTE 0.03 10/3/uL (0.0-0.16); EOSINOPHILS 3.1 %; HEMATOCRIT 32.3 % (40.0-51.0); HEMOGLOBIN 10.2 g/dL (13.6-17.8); IMMATURE GRANULOCYTES 0.3 %; IMMATURE GRANULOCYTES ABSOLUTE 0.02 10/3/uL (0.0-0.11); LYMPHOCYTES 31.5 %; MEAN CORPUS HGB CONC 31.6 g/dL (32.0-36.0); MEAN CORPUSCULAR HEMOGLOB 31.3 pg (26.0-34.0); MEAN CORPUSCULAR VOLUME 99.1 fL (80-100); MEAN PLATELET VOLUME 12.1 fL (9.2-13.0); MONOCYTES 6.6 %; MONOCYTES ABSOLUTE 0.42 10/3/uL (0.21-1.20); NEUTROPHILS ABSOLUTE 3.68 10/3/uL (2.02-8.40); RBC DISTRIBUTION WIDTH 16.6 % (12.0-16.0); RED CELL COUNT 3.26 10/6/uL (4.7-6.1); WHITE BLOOD CELLS 6.4 10/3/uL (4.5-10.5)
[2016-06-19 06:00] LABS: MANUAL DIFF NO %; PLATELET COUNT 248 10/3/uL (150-400)
[2016-06-19 06:10] LABS: ALBUMIN 2.8 G/DL (3.5-5.0); CHLORIDE, SERUM 93 MMOL/L (96-112); CO2 (CARBON DIOXIDE) 23 MMOL/L (24-34); PHOSPHORUS, SERUM 5.4 MG/DL (2.5-4.5); POTASSIUM, SERUM 4.8 MMOL/L (3.5-5.3); SODIUM, SERUM 129 MMOL/L (135-148)
[2016-06-19 06:11] LABS: BUN (BLOOD UREA NITROGEN) 50 MG/DL (6-23); CREATININE 7.95 MG/DL (0.70-1.30); GFR AFRICAN AMERICAN 8 ML/MIN (>=60); GFR NON AFRICAN AMERICAN 7 ML/MIN (>=60); GLUCOSE, SERUM 200 MG/DL (60-99)
[2016-06-20 13:23] LABS: BASOPHILS 0.3 %; BASOPHILS ABSOLUTE 0.02 10/3/uL (0.0-0.16); EOSINOPHILS ABSOLUTE 0.26 10/3/uL (0.0-0.53); HEMATOCRIT 31.6 % (40.0-51.0); HEMOGLOBIN 10.3 g/dL (13.6-17.8); IMMATURE GRANULOCYTES 0.3 %; IMMATURE GRANULOCYTES ABSOLUTE 0.02 10/3/uL (0.0-0.11); LYMPHOCYTES 30.4 %; LYMPHOCYTES ABSOLUTE 1.95 10/3/uL (0.67-4.30); MEAN CORPUS HGB CONC 32.6 g/dL (32.0-36.0); MEAN CORPUSCULAR HEMOGLOB 30.7 pg (26.0-34.0); MEAN PLATELET VOLUME 11.6 fL (9.2-13.0); MONOCYTES 6.1 %; MONOCYTES ABSOLUTE 0.39 10/3/uL (0.21-1.20); NEUTROPHILS 58.9 %; NEUTROPHILS ABSOLUTE 3.78 10/3/uL (2.02-8.40); RBC DISTRIBUTION WIDTH 15.8 % (12.0-16.0); RED CELL COUNT 3.36 10/6/uL (4.7-6.1); WHITE BLOOD CELLS 6.4 10/3/uL (4.5-10.5)
[2016-06-20 13:25] LABS: MANUAL DIFF NO %; PLATELET COUNT 136 10/3/uL (150-400)
[2016-06-20 13:34] LABS: ALBUMIN 2.7 G/DL (3.5-5.0); CALCIUM, SERUM 7.8 MG/DL (8.5-10.4); CHLORIDE, SERUM 87 MMOL/L (96-112); CO2 (CARBON DIOXIDE) 23 MMOL/L (24-34); PHOSPHORUS, SERUM 5.4 MG/DL (2.5-4.5); POTASSIUM, SERUM 4.7 MMOL/L (3.5-5.3); SODIUM, SERUM 125 MMOL/L (135-148)
[2016-06-20 13:36] LABS: BUN (BLOOD UREA NITROGEN) 63 MG/DL (6-23); CREATININE 9.14 MG/DL (0.70-1.30); GFR AFRICAN AMERICAN 6 ML/MIN (>=60); GFR NON AFRICAN AMERICAN 6 ML/MIN (>=60); GLUCOSE, SERUM 109 MG/DL (60-99)
[2016-06-21 06:29] LABS: BASOPHILS 0.4 %; BASOPHILS ABSOLUTE 0.03 10/3/uL (0.0-0.16); EOSINOPHILS 2.6 %; EOSINOPHILS ABSOLUTE 0.21 10/3/uL (0.0-0.53); HEMATOCRIT 36.3 % (40.0-51.0); HEMOGLOBIN 11.6 g/dL (13.6-17.8); IMMATURE GRANULOCYTES 0.3 %; IMMATURE GRANULOCYTES ABSOLUTE 0.02 10/3/uL (0.0-0.11); LYMPHOCYTES 23.9 %; MANUAL DIFF NO %; MEAN CORPUSCULAR HEMOGLOB 31.4 pg (26.0-34.0); MEAN CORPUSCULAR VOLUME 98.4 fL (80-100); MEAN PLATELET VOLUME 11.1 fL (9.2-13.0); MONOCYTES 5.4 %; MONOCYTES ABSOLUTE 0.43 10/3/uL (0.21-1.20); NEUTROPHILS 67.4 %; NEUTROPHILS ABSOLUTE 5.37 10/3/uL (2.02-8.40); PLATELET COUNT 175 10/3/uL (150-400); RBC DISTRIBUTION WIDTH 16.3 % (12.0-16.0); RED CELL COUNT 3.69 10/6/uL (4.7-6.1)
[2016-06-21 06:47] LABS: ALBUMIN 3.1 G/DL (3.5-5.0); CALCIUM, SERUM 7.9 MG/DL (8.5-10.4); CO2 (CARBON DIOXIDE) 23 MMOL/L (24-34); GFR AFRICAN AMERICAN 9 ML/MIN (>=60); GFR NON AFRICAN AMERICAN 8 ML/MIN (>=60); GLUCOSE, SERUM 100 MG/DL (60-99); PHOSPHORUS, SERUM 4.8 MG/DL (2.5-4.5); POTASSIUM, SERUM 4.5 MMOL/L (3.5-5.3)
[2016-06-21 06:48] LABS: BUN (BLOOD UREA NITROGEN) 40 MG/DL (6-23); CHLORIDE, SERUM 97 MMOL/L (96-112); CREATININE 6.76 MG/DL (0.70-1.30); SODIUM, SERUM 135 MMOL/L (135-148)
[2016-06-22 12:59] LABS: BASOPHILS 0.3 %; BASOPHILS ABSOLUTE 0.02 10/3/uL (0.0-0.16); EOSINOPHILS ABSOLUTE 0.25 10/3/uL (0.0-0.53); HEMATOCRIT 33.4 % (40.0-51.0); HEMOGLOBIN 10.9 g/dL (13.6-17.8); IMMATURE GRANULOCYTES 0.2 %; IMMATURE GRANULOCYTES ABSOLUTE 0.01 10/3/uL (0.0-0.11); LYMPHOCYTES 32.6 %; LYMPHOCYTES ABSOLUTE 2.03 10/3/uL (0.67-4.30); MEAN CORPUS HGB CONC 32.6 g/dL (32.0-36.0); MEAN CORPUSCULAR HEMOGLOB 31.3 pg (26.0-34.0); MEAN PLATELET VOLUME 11.6 fL (9.2-13.0); MONOCYTES 5.9 %; MONOCYTES ABSOLUTE 0.37 10/3/uL (0.21-1.20); NEUTROPHILS ABSOLUTE 3.54 10/3/uL (2.02-8.40); PLATELET COUNT 134 10/3/uL (150-400); RBC DISTRIBUTION WIDTH 15.8 % (12.0-16.0); RED CELL COUNT 3.48 10/6/uL (4.7-6.1); WHITE BLOOD CELLS 6.2 10/3/uL (4.5-10.5)
[2016-06-22 13:00] LABS: MANUAL DIFF NO %
[2016-06-22 13:14] LABS: CALCIUM, SERUM 8.1 MG/DL (8.5-10.4); CHLORIDE, SERUM 88 MMOL/L (96-112); CO2 (CARBON DIOXIDE) 22 MMOL/L (24-34); PHOSPHORUS, SERUM 5.1 MG/DL (2.5-4.5); POTASSIUM, SERUM 4.7 MMOL/L (3.5-5.3)
[2016-06-22 13:15] LABS: BUN (BLOOD UREA NITROGEN) 49 MG/DL (6-23); CREATININE 7.81 MG/DL (0.70-1.30); GFR AFRICAN AMERICAN 8 ML/MIN (>=60); GFR NON AFRICAN AMERICAN 7 ML/MIN (>=60); GLUCOSE, SERUM 167 MG/DL (60-99); SODIUM, SERUM 125 MMOL/L (135-148)
[2016-06-22 13:53] LABS: ALBUMIN 2.8 G/DL (3.5-5.0); CALCIUM, SERUM 7.7 MG/DL (8.5-10.4); GLUCOSE, SERUM 175 MG/DL (60-99)
[2016-06-22 13:54] LABS: BUN (BLOOD UREA NITROGEN) 25 MG/DL (6-23); CHLORIDE, SERUM 100 MMOL/L (96-112); CO2 (CARBON DIOXIDE) 28 MMOL/L (24-34); CREATININE 4.03 MG/DL (0.70-1.30); GFR AFRICAN AMERICAN 17 ML/MIN (>=60); GFR NON AFRICAN AMERICAN 15 ML/MIN (>=60); PHOSPHORUS, SERUM 2.6 MG/DL (2.5-4.5); POTASSIUM, SERUM 3.4 MMOL/L (3.5-5.3); SODIUM, SERUM 136 MMOL/L (135-148)
[2016-09-21] MEDS ORDERED: NITROQUICK0.4 MG SL (13:39)
[2016-09-21] MEDS ORDERED: CELEXA10 PO (13:39)
[2016-09-21] MEDS ORDERED: LYRICA150 MG PO (13:39)
[2016-09-21] MEDS ORDERED: PROAMAT5 PO (13:40)
[2016-09-21] MEDS ORDERED: PCET PO (13:40)
[2016-09-21] MEDS ORDERED: CORDARONE PO (13:40)
[2016-09-21] MEDS ORDERED: METHOC750B PO (13:41)
[2016-09-21] MEDS ORDERED: MONODOX100 MG PO (13:42)
[2016-09-22] MEDS ORDERED: SENSIPAR30 M1 PO (11:55)
[2016-09-22] MEDS ORDERED: DIALYVITE PO (12:04)
[2016-10-31] MEDS ORDERED: COREG3 PO (03:31)
[2016-10-31] MEDS ORDERED: NEUR400 PO (03:32)
[2016-10-31] MEDS ORDERED: PACERONE200 MG PO (03:33)
[2016-10-31] MEDS ORDERED: HUMULIN-R CONCEN3 ML SC (10:53)
== END 2016-06-23 15:31 | DRG 246 ==
LOC: ER 04:00 → 2SO 06:45 → ER/OF 07:11 → 2SO 08:11 → SSU1 06-15 09:04 → 2SO 06-17 22:50
PROVIDERS: Internal Medicine Cardiovascular Disease; Internal Medicine Nephrology; Nurse Practitioner; Registered Nurse; Specialist
PROC: 5A1D60Z (ICD-10-PCS; 2016-06-13)
PROC: 4A023N7 Measurement of Cardiac Sampling and Pressure, Left Heart, Percutaneous Approach (ICD-10-PCS; 2016-06-15)
PROC: B2111ZZ Fluoroscopy of Multiple Coronary Arteries using Low Osmolar Contrast (ICD-10-PCS; 2016-06-15)
PROC: B2181ZZ Fluoroscopy of Left Internal Mammary Bypass Graft using Low Osmolar Contrast (ICD-10-PCS; 2016-06-15)
PROC: B2131ZZ Fluoroscopy of Multiple Coronary Artery Bypass Grafts using Low Osmolar Contrast (ICD-10-PCS; 2016-06-15)
PROC: B2151ZZ Fluoroscopy of Left Heart using Low Osmolar Contrast (ICD-10-PCS; 2016-06-15)
PROC: 027034Z Dilation of Coronary Artery, One Artery with Drug-eluting Intraluminal Device, Percutaneous Approach (ICD-10-PCS; principal; 2016-06-16)
DX: I21.4 Non-ST elevation (NSTEMI) myocardial infarction (principal); N18.6 End stage renal disease; I47.2 Ventricular tachycardia; I50.22 Chronic systolic (congestive) heart failure; I13.0 Hypertensive heart and chronic kidney disease with heart failure and stage 1 through stage 4 chronic kidney disease, or unspecified chronic kidney disease; E11.22 Type 2 diabetes mellitus with diabetic chronic kidney disease; I25.10 Atherosclerotic heart disease of native coronary artery without angina pectoris; I25.5 Ischemic cardiomyopathy; E78.5 Hyperlipidemia, unspecified; I73.9 Peripheral vascular disease, unspecified; I34.0 Nonrheumatic mitral (valve) insufficiency; E66.01 Morbid (severe) obesity due to excess calories; E11.65 Type 2 diabetes mellitus with hyperglycemia; E11.610 Type 2 diabetes mellitus with diabetic neuropathic arthropathy; G47.33 Obstructive sleep apnea (adult) (pediatric); M10.9 Gout, unspecified; E87.6 Hypokalemia; D50.9 Iron deficiency anemia, unspecified; E21.3 Hyperparathyroidism, unspecified; I25.2 Old myocardial infarction; Z99.2 Dependence on renal dialysis; Z79.4 Long term (current) use of insulin; Z88.8 Allergy status to other drugs, medicaments and biological substances; Z89.512 Acquired absence of left leg below knee; Z95.810 Presence of automatic (implantable) cardiac defibrillator; Z99.81 Dependence on supplemental oxygen; Z88.5 Allergy status to narcotic agent; Z88.2 Allergy status to sulfonamides
CPT/HCPCS: 71010; 80048; 80061; 80069; 82330; 82962; 83735; 83880; 84484; 85025; 85347; 85610; 85730; 93005; 93459; 93971; 97110-GP; 97116-GP; 97162-GP; 99285; A9270-GY; C1769; C1874; C1887; C1894; C9604; G0257; G8978-CM-GP; G8979-CK-GP; J0610; J2250; J2405; J3010; P9047; Q9967

== ENCOUNTER 2016-06-28 21:34 | Inpatient (IN) | payer MEDICARE, BC ==
--- NOTE | ~2016-06-28 | HP ---
History And Physical [address] [place]. [address] NAME: ALEXIS LAMBERT : 51 STATUS : ADM IN [facility]#: [id number] AGE: 60 ADM/REG DATE : 06/28/16 MR#: [id number] REPORT SERV DATE: 06/29/16 DICTATED BY: DATE: REPORT STATUS : Draft TRANSCRIBED BY: MODL DATE: 06/29/16 DATE OF ADMISSION: 06/28/2016 REASON FOR ADMISSION: End-stage renal disease, questionable facility-acquired pneumonia. HISTORY OF PRESENT ILLNESS: This is a very pleasant 60-year-old male patient, who was recently discharged from [facility] after being inpatient for a non-ST elevation myocardial infarction. He was placed in rehabilitation at [facility] and returns today with a complaint of febrile illness over the last 48 to 72 hours. His is at bedside and participates in questioning regarding HPI present diagnosis. Apparently, over the last 48 to 72 hours, temperature have been around 101 to 102 by her report. He has been somewhat confused and his condition deteriorated. He was presented here for followup. He did experience a run of ventricular tachycardia of 8 beats last night. Cardiology has been consulted and has evaluated him today and is providing antiarrhythmic support. He is awake and alert. Has difficulty with current orientation. He chronically wears CPAP, but it has been left at the rehab facility. He is in no acute distress this morning on evaluation. PAST MEDICAL HISTORY: Includes recent diagnosis of non-STEMI with hospitalization as listed above, end-stage renal disease on Monday, Monday, and Monday hemodialysis in [place]; coronary artery disease, status post bypass and PCI; diabetes mellitus; hypertension; obstructive sleep apnea with CPAP usage; hyperlipidemia; peripheral artery disease, left BKA; Dunbar esophagus; and previous tendon rupture repair. SOCIAL HISTORY: He lives here locally with his . No tobacco. No EtOH. No illicit drugs. FAMILY HISTORY: Noncontributory and not reviewed during this consultation and admission. ALLERGIES: HE REPORTS ALLERGIES TO CILOSTAZOL AND PRAVASTATIN. MEDICATIONS: Active medications on entry include allopurinol 300 mg p.o. q.h.s., Ecotrin 325 mg daily, Lipitor 20 mg p.o. q.h.s., PhosLo 2001 mg p.o. t.i.d., carvedilol 3.125 mg p.o. b.i.d., Plavix 75 mg p.o. daily, Colace 100 mg p.o. daily, vitamin D 50,000 units p.o. on Monday, Duragesic 1 topical q.72 hours, Lasix 40 mg p.o. q.h.s., Neurontin 200 mg p.o. t.i.d., NovoLog via sliding scale, Levemir at 8 units subcu q.12, Imdur 30 mg p.o. q.h.s., lactulose 30 mL daily with supper, Prinivil 1.25 mg p.o. daily, miconazole topical cream t.i.d., Nephrocaps 1 daily with dinner, fish oil 2000 mg p.o. daily, Percocet 1 tablet p.o. q.4 hours p.r.n., and Protonix 40 mg p.o. b.i.d. REVIEW OF SYSTEMS: Review of systems is completed with the assistance of the family, who was at bedside. However, the patient is awake and somewhat alert and oriented well enough to participate. PHYSICAL EXAMINATION: VITAL SIGNS: Blood pressure at 117/57, temperature 98.4, respiratory rate at 20, and heart History And Physical [address] [address] NAME: ALEXIS LAMBERT : 51 STATUS : ADM IN [facility]#: [id number] AGE: 60 ADM/REG DATE : 06/28/16 MR#: [id number] REPORT SERV DATE: 06/29/16 DICTATED BY: DATE: REPORT STATUS : Draft TRANSCRIBED BY: MODL DATE: 06/29/16 rate 114 beats per minute. GENERAL: He is awake, alert, in no acute distress. He is somewhat confused to questioning as above in HPI. HEENT: Normocephalic, atraumatic. Normal ocular movements. No scleral icterus or conjunctival pallor is appreciated. NECK: Supple without thyromegaly. No JVD or mass. CHEST: Shows positive S1 and S2 and tachyarrhythmia. GASTROINTESTINAL: Positive bowel sounds, obese, rounded abdomen in all four quadrants. LUNGS: Diminished with distributed rhonchi across the lower two-thirds, particularly in his left base with normal expansion and effort bilaterally. NEUROLOGIC: He appears to be grossly intact and nonfocal. However, baseline is somewhat confused at this point. EXTREMITIES: Show positive pulses with no clubbing, cyanosis, or edema. He does have the previous lower extremity amputation as listed above. SKIN: Warm, dry, and intact visualized surfaces. No rashes, lesions, or ecchymosis. PSYCH: He is of appropriate mood and affect. LABORATORY DATA: Pertinent laboratories and imaging to this evaluation and admission are as follows. Blood cultures show no growth at one day. Current chest x-ray shows evidence for mild failure cardiomegaly with a previous CABG. Troponin most recent at 0.20. Sodium 139, potassium 4.5, chloride 100, CO2 of 29, BUN 36, creatinine 5.93, reflected GFR 11 mL/minute, glucose of 163, and calcium 9.1. CBC shows white blood cell count at 9.2, RBC 3.25, hemoglobin 10.6, hematocrit 32.4, and platelets at 149. CT of the abdomen and pelvis: Poorly defined airspace consolidation of the right lower lobe suggesting either right lower lobe pneumonia or poorly defined atelectasis with underlying pleural effusion. Nonspecific hepatomegaly. Nonspecific ascites at the right abdomen. Mild diffuse infiltration of subcutaneous fat planes suggesting early anasarca pattern, diffusely sclerotic pattern of the lower thoracic and lumbar spine, and lesser extent at the remaining bony pelvis. Lactate level is 0.7 influenza A and B are negative. Procalcitonin at 1.18. IMPRESSION AND PLAN: End-stage renal disease patient on Monday, Monday, and Monday hemodialysis. Recent admission for non-ST elevation myocardial infarction, now returns to [facility] with questionable pneumonia with some level of confusion, known cardiac history as above with ventricular tachycardia run overnight, and continued difficulty with arrhythmia. He is also reported this morning to be hypotensive with systolic blood pressures in the 80s. By report of the nursing staff, he did receive a bolus of fluids last evening on admission in the emergency department, and he will again receive 500 mL this morning adding to already an emerging overload pattern. I have provided 25 albumin this morning to stabilize his blood pressure with low threshold for movement for pressor support if clinically indicated. Considering his confusion, we will stop his pain medications, stop his Neurontin, check an ABG to assure he is not retaining CO2. Procalcitonin is mildly elevated. He is currently on IV antibiotics and shows no indication currently for infectious disease consultation. Monitor him with usual blood pressure parameters on his beta viki. Cardiology has been consulted and is providing assistance with antiarrhythmic control. We appreciate their assistance. We will attempt to dialyze this patient today as History And Physical [place] [address] [address] [place]. [address] NAME: ALEXIS LAMBERT : 51 STATUS : ADM IN PAT#: [id number] AGE: 60 ADM/REG DATE : 06/28/16 MR#: [id number] REPORT SERV DATE: 06/29/16 DICTATED BY: DATE: REPORT STATUS : Draft TRANSCRIBED BY: MODL DATE: 06/29/16 his blood pressure stabilizes and consider further modification of treatment plan to be made based of clinical presentation of the patient laboratory results, further consultation with renal attending. /ETHEL Andrea Parker NP / [id number] CC: Ama Contreras NP
--- NOTE | ~2016-06-28 | DS ---
Discharge Summary [place] [address] [id number] [facility] [place]. [address] NAME: ALEXIS LAMBERT : 51 STATUS : DIS IN PAT#: [id number] AGE: 60 ADM/REG DATE : 06/28/16 MR#: [id number] REPORT SERV DATE: 07/19/16 DICTATED BY: GIUSEPPE SCOTT DATE: 07/18/16 REPORT STATUS : Draft TRANSCRIBED BY: MODConrad DATE: 07/18/16 Data Collection from hospitalization DISCHARGE DIAGNOSIS(ES): 1. End-stage renal disease. 2. Pneumonia. 3. Arteriosclerotic cardiovascular disease. 4. Obstructive sleep apnea. 5. Dunbar esophagitis. 6. Chronic hypotension. 7. Diabetes mellitus. 8. Hypertension. 9. Hyperlipidemia. 10.History of [id number] myocardial infarction. CONSULTATIONS: 1. Dr. Chano Quarles. 2. Dr. Ashok Barnett. PROCEDURES PERFORMED: CT scan of the abdomen and pelvis without contrast, 06/28/2016. MEDICATIONS: Zyloprim 300 mg with supper, Ecotrin 325 mg with supper, Lipitor 20 mg with supper, Cordarone 200 mg every eight hours, [place] cream apply to the groin topically three times a day as instructed, miconazole one application topically three times a day, PhosLo 2001 mg with meals, Coreg 3.125 mg twice a day, Plavix 75 mg with supper, Colace 100 mg twice a day, vitamin D 50,000 units on Saturdays as instructed, Duragesic one patch topically every 72 hours, Lasix 40 mg with supper, Neurontin 200 mg three times a day, NovoLog injection insulin as instructed, Levemir 8 units subcutaneously every 12 hours, Imdur 30 mg with supper, Levaquin 500 mg every 48 hours, Prinivil 1.25 mg daily, Nephrocaps one capsule with supper, fish oil 2000 mg with supper, Protonix 40 mg twice a day, MiraLAX powder one packet daily, vancomycin 500 mg as instructed, ProAmatine 5 mg at 9 a.m., 1 p.m., and 6 p.m., Xylocaine 0.2 mL as needed, nitroglycerin 0.4 mg sublingually as needed, Zofran 4 mg IV every four hours as needed for nausea and vomiting, Percocet 5/325 one tablet every six hours as needed, Ultram 50 mg every six hours as needed, Enulose 30 mL with supper, and Percocet 5/325 one tablet every four hours as needed. CONDITION AT DISCHARGE: Stable. DISPOSITION: The patient was discharged to [facility] on a renal-diabetic diet with activities as instructed. HOSPITAL COURSE: This is a 60-year-old man who had recently been discharged from the [facility] after being an inpatient for [id number] myocardial infarction. He was placed in rehab at [facility] and returned on the day of this admission with complaints of febrile illness over the last 48-72 hours. His was at the bedside and participated in questioning. Apparently, over the last 48-72 hours, his temperature has been around 101 to 102. He had been somewhat confused and his condition deteriorated. He presented here for followup and did experience a run of ventricular tachycardia at the ED. Discharge Summary [address] [address] NAME: ALEXIS LAMBERT : 51 STATUS : DIS IN PAT#: [id number] AGE: 60 ADM/REG DATE : 06/28/16 MR#: [id number] REPORT SERV DATE: 07/19/16 DICTATED BY: GIUSEPPE SCOTT DATE: 07/18/16 REPORT STATUS : Draft TRANSCRIBED BY: ETHEL DATE: 07/18/16 He was admitted to the hospital at this time for further evaluation and treatment. Upon admission, he had no acute distress. He chronically wears CPAP, but this was left at the rehab facility. CT scan of the abdomen and pelvis showed poorly defined airspace consolidation of the right lower lobe suggesting either right lower lobe pneumonia or poorly defined atelectasis and underlying pleural effusion. He had nonspecific hepatomegaly. There was nonspecific ascites at the right abdomen. There was mild diffuse infiltration of the subcutaneous fat planes suggesting early anasarca pattern. Diffusely sclerotic pattern of the lower thoracic and lumbar spine and lesser extent at the remaining bony pelvis. Influenza A and B were negative. Procalcitonin was 1.18. He was hypotensive with systolic blood pressures in the 80s. He did receive a bolus of fluid. He was going to receive another fluid bolus at this time. Albumin was provided to stabilize his blood pressure with low threshold for movement or pressor support if clinically indicated. Pain medications were stopped as he was confused. Neurontin was stopped. He was currently on IV antibiotics and had no indication currently for infectious disease consultation. We would attempt to dialyze the patient as his blood pressure stabilized, and we would consider further modification of treatment plan based on the clinical presentation of the patient's laboratory results. He was seen in consultation by Dr. Chano Quarles regarding arrhythmia. The patient had been wearing LifeVest with multiple ventricular and atrial arrhythmias as well as nonsustained ventricular tachycardia seen on telemetry. He does have known ischemic cardiomyopathy. We would resume his beta-viki therapy. Hydration was also recommended. EKG was notable for sinus rhythm, delayed R-wave progression, first degree AV block, incomplete bundle branch block with mild QT prolongation and old inferior myocardial infarction of undetermined age. No acute changes were noted. He was also seen by Dr. Ashok Barnett. The patient had been scheduled to undergo AICD, but he had a [id number]-[id number] myocardial infarction and percutaneous coronary intervention and now we are waiting three months with the LifeVest. He had presented at this time with fever and possible right lower lobe infiltrate. He was having nonsustained ventricular tachycardia. Oral Mexitil was going to be given. Z-Stim would be considered if okay from infarction point of view- secondary to nonsustained ventricular tachycardia and need for AICD. On 06/30/2016, he had no new complaints. He had no new problems. He had no shocks, chest pain, or palpitations. He was in a normal sinus rhythm with PVCs on telemetry. Mexitil and LifeVest were continued. He did have a run of ventricular tachycardia on hemodialysis. Midodrine was being given for his chronic hypotension. He was evaluated by Occupational Therapy. Dr. Ashok Barnett again saw the patient regarding the increased nonsustained ventricular tachycardia, nothing was sustained, and there were no shocks. Mexitil was discontinued. IV amiodarone was started. We would wait on Z-Stim secondary to pneumonia and would like to delay any implant at this time. On 07/01/2016, he had no nonsustained ventricular tachycardia, was in a normal sinus rhythm. He was receiving oral amiodarone after the IV loading dose. LifeVest remained in place. Beta-viki was continued. He was evaluated by Physical Therapy. Blood pressure was stable. He did state that he developed some abdominal pain. He was passing flatus but not much stool. Blood pressure remained stable. On 07/05/2016, antibiotics were continued. His lungs were clear. Discharge planning was performed. He remained afebrile. Occupational and Physical Therapy evaluated the patient. On 07/07/2016, discharge instructions were given. Due to his improved and stable condition, he was discharged to Discharge Summary [address] [address] NAME: ALEXIS LAMBERT : 51 STATUS : DIS IN PAT#: [id number] AGE: 60 ADM/REG DATE : 06/28/16 MR#: [id number] REPORT SERV DATE: 07/19/16 DICTATED BY: GIUSEPPE SCOTT DATE: 07/18/16 REPORT STATUS : Draft TRANSCRIBED BY: ETHEL DATE: 07/18/16 [facility] with the above-stated instructions. Information collected by: Cassie Mota I submit the above information as my discharge summary. HARIS/ETHEL Giuseppe Scott M.D. / [id number] CC: Ama Contreras NP Michael C Allan, M.D. Dannis Hood Jr., M.D. [facility]
--- NOTE | ~2016-06-28 | CN ---
Consultation Report [facility] [address] [place]. [address] NAME: ALEXIS LAMBERT : 51 STATUS : ADM IN PAT#: [id number] AGE: 60 ADM/REG DATE : 06/28/16 MR#: [id number] REPORT SERV DATE: 06/29/16 DICTATED BY: ALIRIO QUARLES JR. DATE: 06/29/16 REPORT STATUS : Draft TRANSCRIBED BY: MODL DATE: 06/29/16 DATE OF CONSULTATION: CHIEF COMPLAINT: Palpitations, low-back pain. INDICATION FOR CONSULTATION: Arrhythmia. HISTORY OF PRESENT ILLNESS: The patient is a 60-year-old white male with history of known ischemic heart disease with known ischemic cardiomyopathy, known ejection fraction less than 35%, who presented with multiple arrhythmias noted on LifeVest Telemetry for which a troponin at that time was elevated. He had developed tingling in both arms as well as severe chest pain. Cardiac catheterization had been performed in February of 2016, for which he had two known overlapping Synergy drug-eluting stents placed. He was also known to have a vein graft to the fourth marginal which fills the third obtuse marginal retrogradely as well as saphenous vein graft to the diagonal and saphenous vein graft to the first obtuse marginal known to be occluded. There was an internal mammary artery to the LAD as well which had been patent. Ventriculogram at that time noted an ejection fraction of approximately 20% to 25% with severe inferior hypokinesis, as well as apical hypokinesis and akinesis. Cardiac catheterization was performed on 06/15/2016 for which demonstrated multivessel epicardial coronary artery disease as above with complete occlusion of the saphenous vein graft to the right coronary artery. There was a saphenous vein graft to the presumed OM-1 as well as a compromised saphenous vein graft to the distal circumflex. The JACKSON to the LAD appeared to be patent with diffuse disease noted in the distal LAD. He, at that time, had PCI performed of the saphenous vein graft to the distal circumflex with 0% residual stenosis. He was subsequently released, but then developed fevers, chills, abdominal and lower back pains and was readmitted with mild hypotension, tachycardia, and frequent PVCs. He denies any current chest pain and cardiac enzymes have been unremarkable. REVIEW OF SYSTEMS: A 10-point review of systems is otherwise unremarkable except for feeling unwell. Currently, he denies any angina. ALLERGIES: ALLERGIES ARE TO CILOSTAZOL AND PRAVASTATIN. MEDICATIONS: Currently include piperacillin, sodium chloride, vancomycin, aspirin, atorvastatin, Sensipar, clopidogrel, Colace, vitamin D, fentanyl patch, furosemide, gabapentin, Imdur 30, omega-3 fatty acid, oxycodone, pantoprazole, and Dialyvite. PAST MEDICAL HISTORY: Notable for history of morbid obesity, history of ischemic heart disease as above, acute on chronic systolic and diastolic heart failure, morbid obesity, obstructive sleep apnea, peripheral artery disease, past history of neuropathy, cataracts, sensorineural hearing loss, peripheral artery disease, Dunbar's esophagus, esophageal cancer, diabetes mellitus, history of depression, and history of chronic anemia. Consultation Report [place] [id number] [facility] [place]. [address] NAME: ALEXIS LAMBERT : 51 STATUS : ADM IN [facility]#: [id number] AGE: 60 ADM/REG DATE : 06/28/16 MR#: [id number] REPORT SERV DATE: 06/29/16 DICTATED BY: ALIRIO QUARLES JR. DATE: 06/29/16 REPORT STATUS : Draft TRANSCRIBED BY: ETHEL DATE: 06/29/16 PAST SURGICAL HISTORY: Notable for history of five-vessel coronary artery disease, bilateral cataract surgery, PCI remote as well as recent as above, history of a right upper radiocephalic AV fistula, history of CAD, history of two toes and right foot amputated, as well as a history of a left BKA. SOCIAL HISTORY: Notable for absence of tobacco or ethanol use. FAMILY HISTORY: Notable for heart disease, hypertension. PHYSICAL EXAMINATION: VITAL SIGNS: Temperature is 100.5, pulse of 126, respirations 14, blood pressure is 89/48, now 119/53 with intravenous normal saline. HEENT: Unremarkable. NECK: Supple without jugular venous distention. CARDIOVASCULAR SYSTEM: Regular rate and rhythm. S3, S4. PMI is laterally displaced. LUNGS: Diminished in the bases. ABDOMEN: Soft, obese. Diminished bowel sounds. EXTREMITIES: 1+ with no evidence of pedal edema. NEUROLOGIC: He appears grossly intact. LABORATORY DATA: Includes sodium 139, potassium 4.5, chloride 100, bicarbonate not performed, BUN 36, creatinine of 5.93, GFR of 11, glucose of 163, calcium of 9.1, magnesium 1.8, phosphorus of 3.9. H and H 10.6 and 32.4, white count of 9.2, platelet count 149,000. Troponin of less than 0.21 x2. EKG is notable for sinus rhythm, delayed R-wave progression, first degree AV block, incomplete left bundle branch block with mild QT prolongation and old inferior [place] age undetermined. No acute changes are noted. IMPRESSION: 1. Morbidly obese 60-year-old white male with multiple comorbidities, known hypertension, known ischemic cardiomyopathy, post recent percutaneous coronary intervention, wearing LifeVest with multiple ventricular and atrial arrhythmias as well as nonsustained ventricular tachycardia noted on telemetry. 2. Diabetes mellitus. 3. End-stage renal disease, on hemodialysis. 4. Dyslipidemia. 5. No evidence of current angina. PLANS AND RECOMMENDATIONS: 1. Resume beta viki therapy. 2. Hydration recommended. 3. We will follow with you. Would recommend consulting the patient's reception agent, Dr. Corby Barnett. Consultation Report [address] [address] NAME: ALEXIS LAMBERT : 51 STATUS : ADM IN PAT#: [id number] AGE: 60 ADM/REG DATE : 06/28/16 MR#: [id number] REPORT SERV DATE: 06/29/16 DICTATED BY: ALIRIO QUARLES JR. DATE: 06/29/16 REPORT STATUS : Draft TRANSCRIBED BY: ETHEL DATE: 06/29/16 /ETHEL Alirio Quarles Jr., M.D. / [id number] CC: Gisueppe Ventura M.D. JESSICA Riddle M.D. Michael C Allan, M.D.
[2016-06-28 21:26] LABS: BASOPHILS 0.1 %; BASOPHILS ABSOLUTE 0.01 10/3/uL (0.0-0.16); EOSINOPHILS 0.1 %; EOSINOPHILS ABSOLUTE 0.01 10/3/uL (0.0-0.53); HEMATOCRIT 33.4 % (40.0-51.0); HEMOGLOBIN 10.4 g/dL (13.6-17.8); IMMATURE GRANULOCYTES 0.4 %; IMMATURE GRANULOCYTES ABSOLUTE 0.05 10/3/uL (0.0-0.11); LYMPHOCYTES ABSOLUTE 1.07 10/3/uL (0.67-4.30); MEAN CORPUS HGB CONC 31.1 g/dL (32.0-36.0); MEAN CORPUSCULAR HEMOGLOB 30.6 pg (26.0-34.0); MEAN CORPUSCULAR VOLUME 98.2 fL (80-100); MEAN PLATELET VOLUME 11.7 fL (9.2-13.0); MONOCYTES 6.1 %; MONOCYTES ABSOLUTE 0.73 10/3/uL (0.21-1.20); NEUTROPHILS 84.3 %; NEUTROPHILS ABSOLUTE 10.03 10/3/uL (2.02-8.40); PLATELET COUNT 161 10/3/uL (150-400); RBC DISTRIBUTION WIDTH 16.1 % (12.0-16.0); WHITE BLOOD CELLS 11.9 10/3/uL (4.5-10.5)
[2016-06-28 21:27] LABS: MANUAL DIFF NO %
[~2016-06-28 21:34] MED LIST changes: +NEUR300 PO; +PCET PO; +PROVHFA INH; +SENSIPAR30 M1 PO
[2016-06-28 21:37] LABS: INFLUENZA A SCREEN NEGATIVE (NEGATIVE); INFLUENZA B SCREEN NEGATIVE (NEGATIVE)
[2016-06-28 21:49] LABS: A/G RATIO 0.7 (0.7-1.9); ALBUMIN 2.9 G/DL (3.5-5.0); ALKALINE PHOSPHATASE 473 U/L (45-117); CALCIUM, SERUM 9.2 MG/DL (8.5-10.4); CHLORIDE, SERUM 96 MMOL/L (96-112); CO2 (CARBON DIOXIDE) 26 MMOL/L (24-34); GLOBULIN 4.3 G/DL (2.5-4.1); SGPT(ALT) 21 U/L (5-65); SODIUM, SERUM 135 MMOL/L (135-148); TOTAL BILIRUBIN 0.4 MG/DL (0-1.2); TOTAL PROTEIN 7.2 G/DL (6.0-8.5)
[2016-06-28 21:50] LABS: BUN (BLOOD UREA NITROGEN) 32 MG/DL (6-23); CREATININE 5.55 MG/DL (0.70-1.30); GFR AFRICAN AMERICAN 12 ML/MIN (>=60); GFR NON AFRICAN AMERICAN 10 ML/MIN (>=60); GLUCOSE, SERUM 182 MG/DL (60-99); LACTATE 0.7 MMOL/L (0.3-2.4); POTASSIUM, SERUM 4.8 MMOL/L (3.5-5.3)
[2016-06-28 21:51] LABS: SGOT(AST) 26 U/L (5-40)
[2016-06-28 21:52] LABS: TROPONIN I 0.21 NG/ML (<0.05)
[2016-06-28 23:11] LABS: PROCALCITONIN 1.18 ng/mL (<0.5)
[2016-06-28] MEDS ORDERED: PHOSLO PO (23:13)
[2016-06-28] MEDS ORDERED: Z300 PO (23:13)
[2016-06-28] MEDS ORDERED: LIPITOR20 PO (23:13)
[2016-06-28] MEDS ORDERED: ASAEC PO (23:13)
[2016-06-28] MEDS ORDERED: COREG3 PO (23:14)
[2016-06-28] MEDS ORDERED: VITD PO (23:14)
[2016-06-28] MEDS ORDERED: DSS PO (23:14)
[2016-06-28] MEDS ORDERED: PLAVIX PO (23:14)
[2016-06-28] MEDS ORDERED: L40 PO (23:15)
[2016-06-28] MEDS ORDERED: DURA25 TOP (23:15)
[2016-06-28] MEDS ORDERED: LEVEMIR SC (23:16)
[2016-06-28] MEDS ORDERED: NEUR100 PO (23:16)
[2016-06-28] MEDS ORDERED: NOVOLOG SC (23:16)
[2016-06-28] MEDS ORDERED: IMDUR30 PO (23:17)
[2016-06-28] MEDS ORDERED: ENULOSE PO (23:17)
[2016-06-28] MEDS ORDERED: MICONAZOLE CREA30 GM TOP (23:18)
[2016-06-28] MEDS ORDERED: PRIN2.5 PO (23:18)
[2016-06-28] MEDS ORDERED: FISH-EPA1000 MG PO (23:19)
[2016-06-28] MEDS ORDERED: NEPHRO PO (23:19)
[2016-06-28] MEDS ORDERED: PROTONIX PO (23:19)
[2016-06-28] MEDS ORDERED: PCET PO (23:20)
[2016-06-29 03:42] LABS: BASOPHILS 0.1 %; BASOPHILS ABSOLUTE 0.01 10/3/uL (0.0-0.16); EOSINOPHILS 0.3 %; EOSINOPHILS ABSOLUTE 0.03 10/3/uL (0.0-0.53); HEMATOCRIT 32.4 % (40.0-51.0); HEMOGLOBIN 10.6 g/dL (13.6-17.8); IMMATURE GRANULOCYTES 0.3 %; IMMATURE GRANULOCYTES ABSOLUTE 0.03 10/3/uL (0.0-0.11); LYMPHOCYTES 14.8 %; LYMPHOCYTES ABSOLUTE 1.36 10/3/uL (0.67-4.30); MEAN CORPUSCULAR HEMOGLOB 32.6 pg (26.0-34.0); MEAN CORPUSCULAR VOLUME 99.7 fL (80-100); MEAN PLATELET VOLUME 11.5 fL (9.2-13.0); MONOCYTES 6.2 %; MONOCYTES ABSOLUTE 0.57 10/3/uL (0.21-1.20); NEUTROPHILS 78.3 %; NEUTROPHILS ABSOLUTE 7.21 10/3/uL (2.02-8.40); PLATELET COUNT 149 10/3/uL (150-400); RBC DISTRIBUTION WIDTH 15.9 % (12.0-16.0); RED CELL COUNT 3.25 10/6/uL (4.7-6.1); WHITE BLOOD CELLS 9.2 10/3/uL (4.5-10.5)
[2016-06-29 03:45] LABS: MANUAL DIFF NO %; MEAN CORPUS HGB CONC 32.7 g/dL (32.0-36.0)
[2016-06-29 03:54] LABS: BUN (BLOOD UREA NITROGEN) 36 MG/DL (6-23); CALCIUM, SERUM 9.1 MG/DL (8.5-10.4); CHLORIDE, SERUM 100 MMOL/L (96-112); CO2 (CARBON DIOXIDE) 29 MMOL/L (24-34); CREATININE 5.93 MG/DL (0.70-1.30); GFR AFRICAN AMERICAN 11 ML/MIN (>=60); GFR NON AFRICAN AMERICAN 9 ML/MIN (>=60); GLUCOSE, SERUM 163 MG/DL (60-99); POTASSIUM, SERUM 4.5 MMOL/L (3.5-5.3); SODIUM, SERUM 139 MMOL/L (135-148)
[2016-06-29 04:00] LABS: PHOSPHORUS, SERUM 3.9 MG/DL (2.5-4.5); TROPONIN I 0.2 NG/ML (<0.05)
[2016-06-29 10:40] LABS: ALLENS TEST Pos; BE (BASE EXCESS) -2.5 MEQ/L (0 +/- 2.5); CARBOXYHEMOGLOBIN 1.8 % (0-3); DEVICE NC; HCO3 (ACTUAL BICARBONATE) 23.1 MEQ/L (23-27); INSTRUMENT SERIAL # 8083; METHEMOGLOBIN 0.3 % (0-3); O2 CONTENT 15.3 VOL% (18-24); PCO2 (CO2 TENSION) 43 MMHG (35-45); PO2 (O2 TENSION) 138 MMHG (79-93); SAMPLE Arterial; pH 7.35 (7.37-7.43)
[2016-06-30 06:58] LABS: BASOPHILS 0.1 %; BASOPHILS ABSOLUTE 0.01 10/3/uL (0.0-0.16); EOSINOPHILS 1.9 %; EOSINOPHILS ABSOLUTE 0.16 10/3/uL (0.0-0.53); HEMATOCRIT 32.4 % (40.0-51.0); HEMOGLOBIN 9.9 g/dL (13.6-17.8); IMMATURE GRANULOCYTES 0.1 %; IMMATURE GRANULOCYTES ABSOLUTE 0.01 10/3/uL (0.0-0.11); LYMPHOCYTES 16.2 %; LYMPHOCYTES ABSOLUTE 1.36 10/3/uL (0.67-4.30); MEAN CORPUSCULAR HEMOGLOB 30.6 pg (26.0-34.0); MEAN PLATELET VOLUME 11.4 fL (9.2-13.0); MONOCYTES ABSOLUTE 0.42 10/3/uL (0.21-1.20); NEUTROPHILS 76.7 %; NEUTROPHILS ABSOLUTE 6.41 10/3/uL (2.02-8.40); PLATELET COUNT 130 10/3/uL (150-400); RBC DISTRIBUTION WIDTH 16.1 % (12.0-16.0); RED CELL COUNT 3.24 10/6/uL (4.7-6.1); WHITE BLOOD CELLS 8.4 10/3/uL (4.5-10.5)
[2016-06-30 06:59] LABS: MANUAL DIFF NO %; MEAN CORPUS HGB CONC 30.6 g/dL (32.0-36.0)
[2016-06-30 07:09] LABS: CHLORIDE, SERUM 100 MMOL/L (96-112); CO2 (CARBON DIOXIDE) 27 MMOL/L (24-34); GFR AFRICAN AMERICAN 13 ML/MIN (>=60); GFR NON AFRICAN AMERICAN 11 ML/MIN (>=60); GLUCOSE, SERUM 168 MG/DL (60-99); POTASSIUM, SERUM 4.4 MMOL/L (3.5-5.3); SODIUM, SERUM 136 MMOL/L (135-148)
[2016-06-30 07:10] LABS: BUN (BLOOD UREA NITROGEN) 31 MG/DL (6-23); CREATININE 5.16 MG/DL (0.70-1.30)
[2016-06-30 07:40] LABS: B NATRIURETIC PEPTIDE (BNP) 1704.1 PG/ML (< 100.0)
[2016-07-01 03:59] LABS: BASOPHILS 0.4 %; BASOPHILS ABSOLUTE 0.03 10/3/uL (0.0-0.16); EOSINOPHILS 1.2 %; HEMOGLOBIN 11.3 g/dL (13.6-17.8); IMMATURE GRANULOCYTES 0.4 %; IMMATURE GRANULOCYTES ABSOLUTE 0.03 10/3/uL (0.0-0.11); LYMPHOCYTES 15.3 %; LYMPHOCYTES ABSOLUTE 1.29 10/3/uL (0.67-4.30); MEAN CORPUS HGB CONC 30.9 g/dL (32.0-36.0); MEAN CORPUSCULAR HEMOGLOB 31.2 pg (26.0-34.0); MEAN CORPUSCULAR VOLUME 101.1 fL (80-100); MEAN PLATELET VOLUME 11.6 fL (9.2-13.0); MONOCYTES 5.4 %; MONOCYTES ABSOLUTE 0.45 10/3/uL (0.21-1.20); NEUTROPHILS 77.3 %; NEUTROPHILS ABSOLUTE 6.51 10/3/uL (2.02-8.40); PLATELET COUNT 157 10/3/uL (150-400); RBC DISTRIBUTION WIDTH 15.6 % (12.0-16.0); RED CELL COUNT 3.62 10/6/uL (4.7-6.1); WHITE BLOOD CELLS 8.4 10/3/uL (4.5-10.5)
[2016-07-01 04:00] LABS: HEMATOCRIT 36.6 % (40.0-51.0); MANUAL DIFF NO %
[2016-07-01 04:11] LABS: ALBUMIN 2.9 G/DL (3.5-5.0); BUN (BLOOD UREA NITROGEN) 28 MG/DL (6-23); CALCIUM, SERUM 8.9 MG/DL (8.5-10.4); CHLORIDE, SERUM 100 MMOL/L (96-112); CO2 (CARBON DIOXIDE) 24 MMOL/L (24-34); GFR AFRICAN AMERICAN 13 ML/MIN (>=60); GFR NON AFRICAN AMERICAN 11 ML/MIN (>=60); GLUCOSE, SERUM 175 MG/DL (60-99); PHOSPHORUS, SERUM 3.5 MG/DL (2.5-4.5); POTASSIUM, SERUM 4.5 MMOL/L (3.5-5.3); SODIUM, SERUM 138 MMOL/L (135-148)
[2016-07-02 06:18] LABS: ALBUMIN 2.8 G/DL (3.5-5.0); BUN (BLOOD UREA NITROGEN) 24 MG/DL (6-23); CALCIUM, SERUM 8.8 MG/DL (8.5-10.4); CHLORIDE, SERUM 99 MMOL/L (96-112); CO2 (CARBON DIOXIDE) 27 MMOL/L (24-34); CREATININE 4.52 MG/DL (0.70-1.30); GFR AFRICAN AMERICAN 15 ML/MIN (>=60); GFR NON AFRICAN AMERICAN 13 ML/MIN (>=60); GLUCOSE, SERUM 108 MG/DL (60-99); PHOSPHORUS, SERUM 3.1 MG/DL (2.5-4.5); POTASSIUM, SERUM 3.7 MMOL/L (3.5-5.3); SODIUM, SERUM 136 MMOL/L (135-148)
[2016-07-02 06:25] LABS: BASOPHILS 0.1 %; BASOPHILS ABSOLUTE 0.01 10/3/uL (0.0-0.16); EOSINOPHILS 3.1 %; EOSINOPHILS ABSOLUTE 0.21 10/3/uL (0.0-0.53); IMMATURE GRANULOCYTES 0.1 %; IMMATURE GRANULOCYTES ABSOLUTE 0.01 10/3/uL (0.0-0.11); LYMPHOCYTES 19.5 %; LYMPHOCYTES ABSOLUTE 1.34 10/3/uL (0.67-4.30); MEAN CORPUS HGB CONC 31.4 g/dL (32.0-36.0); MEAN CORPUSCULAR HEMOGLOB 31.6 pg (26.0-34.0); MEAN CORPUSCULAR VOLUME 100.6 fL (80-100); MEAN PLATELET VOLUME 11.4 fL (9.2-13.0); MONOCYTES 6.3 %; MONOCYTES ABSOLUTE 0.43 10/3/uL (0.21-1.20); NEUTROPHILS 70.9 %; NEUTROPHILS ABSOLUTE 4.88 10/3/uL (2.02-8.40); PLATELET COUNT 156 10/3/uL (150-400); RBC DISTRIBUTION WIDTH 15.5 % (12.0-16.0); RED CELL COUNT 3.48 10/6/uL (4.7-6.1); WHITE BLOOD CELLS 6.9 10/3/uL (4.5-10.5)
[2016-07-02 06:30] LABS: MANUAL DIFF NO %
[2016-07-03 04:57] LABS: ALBUMIN 2.6 G/DL (3.5-5.0); CALCIUM, SERUM 8.3 MG/DL (8.5-10.4); CHLORIDE, SERUM 96 MMOL/L (96-112); CO2 (CARBON DIOXIDE) 25 MMOL/L (24-34); GLUCOSE, SERUM 120 MG/DL (60-99); PHOSPHORUS, SERUM 3.6 MG/DL (2.5-4.5); SODIUM, SERUM 134 MMOL/L (135-148)
[2016-07-03 04:59] LABS: BUN (BLOOD UREA NITROGEN) 31 MG/DL (6-23); CREATININE 5.56 MG/DL (0.70-1.30); GFR AFRICAN AMERICAN 12 ML/MIN (>=60); GFR NON AFRICAN AMERICAN 10 ML/MIN (>=60); POTASSIUM, SERUM 4.2 MMOL/L (3.5-5.3)
[2016-07-03 07:40] LABS: BASOPHILS 0.5 %; BASOPHILS ABSOLUTE 0.04 10/3/uL (0.0-0.16); EOSINOPHILS 3.6 %; EOSINOPHILS ABSOLUTE 0.28 10/3/uL (0.0-0.53); HEMATOCRIT 38.2 % (40.0-51.0); IMMATURE GRANULOCYTES 0.3 %; IMMATURE GRANULOCYTES ABSOLUTE 0.02 10/3/uL (0.0-0.11); LYMPHOCYTES ABSOLUTE 1.72 10/3/uL (0.67-4.30); MEAN CORPUS HGB CONC 31.4 g/dL (32.0-36.0); MEAN CORPUSCULAR HEMOGLOB 31.2 pg (26.0-34.0); MEAN CORPUSCULAR VOLUME 99.2 fL (80-100); MEAN PLATELET VOLUME 11.5 fL (9.2-13.0); MONOCYTES 10.6 %; MONOCYTES ABSOLUTE 0.83 10/3/uL (0.21-1.20); NEUTROPHILS ABSOLUTE 4.92 10/3/uL (2.02-8.40); PLATELET COUNT 174 10/3/uL (150-400); RBC DISTRIBUTION WIDTH 15.6 % (12.0-16.0); RED CELL COUNT 3.85 10/6/uL (4.7-6.1); WHITE BLOOD CELLS 7.8 10/3/uL (4.5-10.5)
[2016-07-03 07:41] LABS: MANUAL DIFF NO %
[2016-07-04 07:16] LABS: BASOPHILS 0.3 %; BASOPHILS ABSOLUTE 0.02 10/3/uL (0.0-0.16); EOSINOPHILS 3.7 %; EOSINOPHILS ABSOLUTE 0.23 10/3/uL (0.0-0.53); HEMOGLOBIN 10.9 g/dL (13.6-17.8); IMMATURE GRANULOCYTES 0.2 %; IMMATURE GRANULOCYTES ABSOLUTE 0.01 10/3/uL (0.0-0.11); MEAN CORPUS HGB CONC 32.2 g/dL (32.0-36.0); MEAN CORPUSCULAR HEMOGLOB 31.2 pg (26.0-34.0); MEAN CORPUSCULAR VOLUME 96.8 fL (80-100); MEAN PLATELET VOLUME 11.2 fL (9.2-13.0); MONOCYTES 9.2 %; MONOCYTES ABSOLUTE 0.57 10/3/uL (0.21-1.20); NEUTROPHILS 65.6 %; NEUTROPHILS ABSOLUTE 4.05 10/3/uL (2.02-8.40); PLATELET COUNT 175 10/3/uL (150-400); RBC DISTRIBUTION WIDTH 15.4 % (12.0-16.0); RED CELL COUNT 3.49 10/6/uL (4.7-6.1); WHITE BLOOD CELLS 6.2 10/3/uL (4.5-10.5)
[2016-07-04 07:18] LABS: HEMATOCRIT 33.8 % (40.0-51.0); MANUAL DIFF NO %
[2016-07-04 07:30] LABS: ALBUMIN 2.4 G/DL (3.5-5.0); CALCIUM, SERUM 7.8 MG/DL (8.5-10.4); CHLORIDE, SERUM 94 MMOL/L (96-112); CO2 (CARBON DIOXIDE) 23 MMOL/L (24-34); PHOSPHORUS, SERUM 3.1 MG/DL (2.5-4.5); SODIUM, SERUM 130 MMOL/L (135-148)
[2016-07-04 07:31] LABS: BUN (BLOOD UREA NITROGEN) 39 MG/DL (6-23); CREATININE 6.47 MG/DL (0.70-1.30); GFR AFRICAN AMERICAN 10 ML/MIN (>=60); GFR NON AFRICAN AMERICAN 8 ML/MIN (>=60); GLUCOSE, SERUM 182 MG/DL (60-99)
[2016-07-05 07:04] LABS: BASOPHILS 0.4 %; BASOPHILS ABSOLUTE 0.02 10/3/uL (0.0-0.16); EOSINOPHILS 4.7 %; EOSINOPHILS ABSOLUTE 0.24 10/3/uL (0.0-0.53); HEMATOCRIT 33.9 % (40.0-51.0); HEMOGLOBIN 10.9 g/dL (13.6-17.8); IMMATURE GRANULOCYTES 0.2 %; IMMATURE GRANULOCYTES ABSOLUTE 0.01 10/3/uL (0.0-0.11); LYMPHOCYTES 29.1 %; LYMPHOCYTES ABSOLUTE 1.47 10/3/uL (0.67-4.30); MEAN CORPUS HGB CONC 32.2 g/dL (32.0-36.0); MEAN CORPUSCULAR HEMOGLOB 31.1 pg (26.0-34.0); MEAN CORPUSCULAR VOLUME 96.9 fL (80-100); MEAN PLATELET VOLUME 11.3 fL (9.2-13.0); MONOCYTES 6.3 %; MONOCYTES ABSOLUTE 0.32 10/3/uL (0.21-1.20); NEUTROPHILS 59.3 %; PLATELET COUNT 179 10/3/uL (150-400); RBC DISTRIBUTION WIDTH 15.8 % (12.0-16.0); WHITE BLOOD CELLS 5.1 10/3/uL (4.5-10.5)
[2016-07-05 07:05] LABS: MANUAL DIFF NO %
[2016-07-05 07:21] LABS: ALBUMIN 2.5 G/DL (3.5-5.0); CALCIUM, SERUM 7.9 MG/DL (8.5-10.4); CHLORIDE, SERUM 99 MMOL/L (96-112); CO2 (CARBON DIOXIDE) 27 MMOL/L (24-34); PHOSPHORUS, SERUM 3.2 MG/DL (2.5-4.5); POTASSIUM, SERUM 3.8 MMOL/L (3.5-5.3); SODIUM, SERUM 135 MMOL/L (135-148)
[2016-07-05 07:22] LABS: BUN (BLOOD UREA NITROGEN) 28 MG/DL (6-23); CREATININE 5.45 MG/DL (0.70-1.30); GFR AFRICAN AMERICAN 12 ML/MIN (>=60); GFR NON AFRICAN AMERICAN 10 ML/MIN (>=60); GLUCOSE, SERUM 119 MG/DL (60-99)
[2016-09-21] MEDS ORDERED: NITROQUICK0.4 MG SL (13:39)
[2016-09-21] MEDS ORDERED: LYRICA150 MG PO (13:39)
[2016-09-21] MEDS ORDERED: CELEXA10 PO (13:39)
[2016-09-21] MEDS ORDERED: PCET PO (13:40)
[2016-09-21] MEDS ORDERED: CORDARONE PO (13:40)
[2016-09-21] MEDS ORDERED: PROAMAT5 PO (13:40)
[2016-09-21] MEDS ORDERED: METHOC750B PO (13:41)
[2016-09-21] MEDS ORDERED: MONODOX100 MG PO (13:42)
[2016-09-22] MEDS ORDERED: SENSIPAR30 M1 PO (11:55)
[2016-09-22] MEDS ORDERED: DIALYVITE PO (12:04)
[2016-10-31] MEDS ORDERED: COREG3 PO (03:31)
[2016-10-31] MEDS ORDERED: NEUR400 PO (03:32)
[2016-10-31] MEDS ORDERED: PACERONE200 MG PO (03:33)
[2016-10-31] MEDS ORDERED: HUMULIN-R CONCEN3 ML SC (10:53)
== END 2016-07-07 17:43 | DRG 193 ==
LOC: ER 21:34 → 2SO 23:37 → SDC/OF 06-30 12:47 → MIC 06-30 13:45 → 7NO 07-02 18:28
PROVIDERS: Emergency Medicine; Internal Medicine Cardiovascular Disease; Internal Medicine Nephrology; Registered Nurse
PROC: 5A1D60Z (ICD-10-PCS; principal; 2016-06-29)
DX: J18.9 Pneumonia, unspecified organism (principal); N18.6 End stage renal disease; I21.4 Non-ST elevation (NSTEMI) myocardial infarction; I47.2 Ventricular tachycardia; I12.0 Hypertensive chronic kidney disease with stage 5 chronic kidney disease or end stage renal disease; Z68.41 Body mass index [BMI] 40.0-44.9, adult; E11.22 Type 2 diabetes mellitus with diabetic chronic kidney disease; I25.10 Atherosclerotic heart disease of native coronary artery without angina pectoris; G47.33 Obstructive sleep apnea (adult) (pediatric); E78.5 Hyperlipidemia, unspecified; E66.01 Morbid (severe) obesity due to excess calories; K22.70 Barrett's esophagus without dysplasia; I25.5 Ischemic cardiomyopathy; Z88.8 Allergy status to other drugs, medicaments and biological substances; I25.2 Old myocardial infarction; Z95.1 Presence of aortocoronary bypass graft; Z95.5 Presence of coronary angioplasty implant and graft; Z89.512 Acquired absence of left leg below knee; Z79.899 Other long term (current) drug therapy; Z99.2 Dependence on renal dialysis
CPT/HCPCS: 36600; 71010; 74176; 80048; 80053; 80069; 80202; 82140; 82805; 82962; 83605; 83690; 83735; 83880; 84100; 84145; 84484; 85025; 87040; 87641; 87804; 93005; 97161-GP; 97165-GO; 99285; A9270-GY; G0257; G8978-CL-GP; G8979-CK-GP; G8987-CK-GO; G8988-CJ-GO; J0282; J2405; J2543; J3370; P9047